=== PATIENT | male | born 1955 | race Caucasian/White ===

== ENCOUNTER 2018-01-15 18:16 | Emergency (ER) | payer SELFPAY ==
[~2018-01-15] VITALS: Ht 170.2 cm; Wt 181.4 kg
[~2018-01-15 18:16] MED LIST: CIPRO500 MG PO; LASIX20 MG PO; LEXAPRO20 MG PO; LISINOPRIL10 MG PO; METOPROLOL TART25 MG PO; MIRAPEX1 MG PO; SOMA350 MG PO; TIZANIDINE HCL4 MG PO
[2018-01-15] MEDS ORDERED: HYDROCODONE/APAP 5MG-325MG TAB PO ONE (18:45)
[2018-01-15 19:17] LABS: BASOPHILS % 0.7 % (0.0-1.0); EOSINOPHILS # (AUTO) 0.3 (0.0-0.4); EOSINOPHILS % 5.1 % (0.0-6.0); HEMATOCRIT 36.2 % (38.2-49.6); HEMOGLOBIN 12.2 g/dL (14.0-18.0); LYMPHOCYTES # (AUTO) 1.5 (1.0-3.2); LYMPHOCYTES % 26.2 % (18.0-39.1); MEAN CORPUSCULAR HGB CONC 33.7 g/dL (31-35); MEAN CORPUSCULAR VOLUME 106.8 fL (81-99); MONOCYTES # (AUTO) 0.9 (0.2-0.8); MONOCYTES % 14.9 % (4.4-11.3); NEUTROPHILS # (AUTO) 3.1 (2.1-6.9); NEUTROPHILS % 52.4 % (38.7-80.0); RED BLOOD COUNT 3.39 x10e6/uL (4.3-5.7); RED CELL DISTRIBUTION WIDTH 14.7 % (11.7-14.4)
[2018-01-15 19:19] LABS: PLATELET COUNT 79 x10e3/uL (140-360)
[2018-01-15 19:42] LABS: ANION GAP 11.5 mmol/L (8-16); BLOOD UREA NITROGEN 12 mg/dL (7-26); BUN/CREATININE RATIO 11 (6-25); CALCIUM 8.9 mg/dL (8.4-10.2); CARBON DIOXIDE 33 mmol/L (22-29); CHLORIDE 100 mmol/L (98-107); CREATININE, SERUM 1.08 mg/dL (0.72-1.25); EST GLOMERULAR FILTRATION RATE > 60 ML/MIN (60-); GLUCOSE 116 mg/dL (74-118); POTASSIUM 4.5 mmol/L (3.5-5.1); SODIUM 140 mmol/L (136-145)
[2018-01-15 20:18] LABS: ERYTHROCYTE SEDIMENTATION RATE 16 mm/hr (0-13)
--- NOTE | 2018-01-15 20:22 | Diagnostic Imaging Report ---
HIP LEFT 2-3 VW (+/- PELVIS) - 3 views HISTORY: Pain. Fall. COMPARISON: None available. FINDINGS: Bones: No acute displaced fracture. Osseous alignment is within normal limits. Joints: The joint spaces are well-maintained. Soft tissues: The soft tissues appear unremarkable. IMPRESSION: No acute radiographic abnormality. Signed by: Dr. Andrew Chua M.D. on 01/15/2018 8:18 PM
--- NOTE | 2018-01-15 20:23 | Diagnostic Imaging Report ---
KNEE LEFT THREE VIEWS - 3 views HISTORY: Pain. Fall. COMPARISON: None available. FINDINGS: Bones: No acute displaced fracture. Osseous alignment is within normal limits. Joints: Moderate tricompartmental degenerative changes. Significant calcification of the quadriceps tendon, likely from previous quadriceps tendon injury and subsequent fracture and healing with heterotopic bone formation. Soft tissues: The soft tissues appear unremarkable. IMPRESSION: Moderate tricompartmental degenerative changes. Significant calcification of the quadriceps tendon, likely from previous quadriceps tendon injury and subsequent fracture and healing with heterotopic bone formation. Signed by: Dr. Andrew Chua M.D. on 01/15/2018 8:20 PM
[2018-01-15 21:12] VITALS: BP 117/77
== END 2018-01-15 22:06 | disposition home or self-care (01) ==
LOC: ER 18:16
DX: S80.02XA Contusion of left knee, initial encounter (principal); S80.212A Abrasion, left knee, initial encounter; M25.552 Pain in left hip; W06.XXXA Fall from bed, initial encounter; Y93.84 Activity, sleeping; Y92.003 Bedroom of unspecified non-institutional (private) residence as the place of occurrence of the external cause; I73.9 Peripheral vascular disease, unspecified; K74.60 Unspecified cirrhosis of liver; K21.9 Gastro-esophageal reflux disease without esophagitis
CPT/HCPCS: 36415; 80048; 85025; 85651; 93005; 99284

== ENCOUNTER 2018-04-02 00:16 | Inpatient (IN) | payer BC, MEDICARE ==
[~2018-04-02] VITALS: Ht 170.2 cm; Wt 197.6 kg
--- OUTSIDE RECORDS SUMMARY | 2018-04-02 00:20 | XMS REPORT | Continuity of Care Document ---
Author Author [facility] Interface Address Unknown Phone Unavailable Problems Problem Status Onset Date Classification Date Reported Comments Source DIARRHEA Active 08/20/2016 [facility] ACUTE HEPATIC ENCEPHALOPATHY Active 08/20/2016 [facility] CHF (<span [id number]</span>) Resolved Problem 09/03/2016 [facility] ACUTE AND SUBACUTE HEPATIC FAILURE WITHO Active [facility] Medications Medication Details Route Status Patient Instructions Ordering Provider Order Date Source Protonix 40 mg, 1 tab, Route: PO, Drug form: ECTAB, Before Lunch, Dosing Weight 186.989, kg, Start date: 08/30/16 11:30:00 CDT, Duration: 30 day, Stop date: 09/28/16 11:30:00 CDTNotes: Tablet should not be chewed or crushed. (Same as: Protonix) No Longer Active 08/30/2016 [facility] pantoprazole 40 MG Enteric Coated Tablet [Protonix] 40 mg=1 tab, PO, Daily, # 30 tab, 0 Refill(s) Active 08/30/2016 [facility] thiamine 100 mg oral tablet 100 mg=1 tab, PO, Daily, # 100 tab, 0 Refill(s) No Longer Active 08/30/2016 [facility] spironolactone 50 mg oral tablet 100 mg=2 tab, PO, Daily, # 60 tab, 0 Refill(s) Active 08/30/2016 [facility] riFAXimin 550 mg oral tablet 550 mg=1 tab, NG, BID, # 30 tab, 0 Refill(s) Active 08/30/2016 [facility] Lactulose 667 MG/ML Oral Solution 40 gm=60 mL, PO, TID, titrate to have at least 2 loose BM per day., # 3,600 mL, 1 Refill(s) No Longer Active 08/30/2016 [facility] Furosemide 40 MG Oral Tablet [Lasix] 40 mg=1 tab, PO, BID, # 60 tab, 0 Refill(s) Active 08/30/2016 [facility] Thiamine 100 mg, 1 tab, Route: PO, Drug form: TAB, Daily, Dosing Weight 186.989, kg, Start date: 08/29/16 9:00:00 CDT, Duration: 30 day, Stop date: 09/27/16 9:00:00 CDTNotes: (Same As: Vitamin B1) No Longer Active 08/29/2016 [facility] Spironolactone 100 mg, 2 tab, Route: PO, Drug form: TAB, Daily, Dosing Weight 186.989, kg, Start date: 08/28/16 9:00:00 CDT, Duration: 30 day, Stop date: 09/26/16 9:00:00 CDTNotes: (Same As: Aldactone) No Longer Active 08/28/2016 [facility] Albuterol 0.83 MG/ML Inhalant Solution 2.5 mg, 3.01 mL, Route: INHALATION, Drug form: SOLN, PRN, Dosing Weight 186.989, kg, PRN Shortness of breath, Start date: 08/25/16 22:53:00 CDT, Duration: 30 day, Stop date: 09/24/16 22:52:00 CDTNotes: SEE RT DOCUMENTATION (Same as: Proventil) No Longer Active 08/26/2016 [facility] Mirapex 0.25 mg, 0.5 tab, Route: PO, Drug form: TAB, Bedtime, Dosing Weight 186.989, kg, Start date: 08/25/16 21:00:00 CDT, Duration: 30 day, Stop date: 09/23/16 21:00:00 CDT No Longer Active 08/26/2016 [facility] Spironolactone 25 mg, 1 tab, Route: PO, Drug form: TAB, BID, Dosing Weight 186.989, kg, Start date: 08/24/16 17:00:00 CDT, Duration: 30 day, Stop date: 09/23/16 9:00:00 CDTNotes: (Same As: Aldactone) No Longer Active 08/24/2016 [facility] Furosemide 40 MG Oral Tablet [Lasix] 40 mg, 1 tab, Route: PO, Drug form: TAB, BID, Dosing Weight 186.989, kg, Start date: 08/24/16 17:00:00 CDT, Duration: 30 day, Stop date: 09/23/16 9:00:00 CDTNotes: (Same as: Lasix) May cause GI upset. Give with food or milk. No Longer Active 08/24/2016 [facility] Haldol 5 mg, 1 mL, Route: IVP, Drug form: INJ, Q6H, Dosing Weight 186.989, kg, PRN as needed for agitation, Start date: 08/23/16 17:40:00 CDT, Duration: 30 day, Stop date: 09/22/16 17:39:00 CDTNotes: (Same as: Haldol) No Longer Active 08/23/2016 [facility] XIFAXAN 550 mg, 1 tab, Route: NG, Drug form: TAB, BID, Dosing Weight 186.989, kg, Start date: 08/23/16 17:00:00 CDT, Duration: 30 day, Stop date: 09/22/16 9:00:00 CDTNotes: Same as: Xifaxan No Longer Active 08/23/2016 [facility] Lactulose 667 MG/ML Oral Solution 40 gm, 60 mL, Route: PO, Drug form: SYRP, TID, Dosing Weight 190.909, kg, Start date: 08/23/16 17:00:00 CDT, Stop date: 09/22/16 13:00:00 CDTNotes: (Same as:Chronulac) No Longer Active 08/23/2016 [facility] D5W 1/2NS + KCL 20mEq/L 1000ml (Premix) 1,000 mL 1,000 mL, Rate: 125 ml/hr, Infuse over: 8 hr, Route: IV, Dosing Weight 186.989 kg, Total Volume: 1,000, Start date: 08/23/16 11:54:00 CDT, Stop date: 09/22/16 11:53:00 CDTNotes: PREMIX IV - Do Not Alter WASTE: F/P - Sink; E - Municipal Trash Bin No Longer Active 08/23/2016 [facility] Geodon 10 mg, Route: IM, Drug form: PDR/INJ, Q12H, Dosing Weight 186.989, kg, PRN Agitation, Start date: 08/22/16 2:30:00 CDT, Duration: 30 day, Stop date: 09/21/16 2:29:00 CDTNotes: Reconstitute with 1.2 ml of sterile water. Final concentration=20 mg/1ml. Maximum 40 mg/24 hours (Same As: Geodon). MEDICATION WASTE Product Size: 20 mg Product Wasted: 10mg No Longer Active 08/22/2016 [facility] metoprolol tartrate 25 mg, 1 tab, Route: PO, Drug form: TAB, BID, Dosing Weight 186.989, kg, Start date: 08/21/16 21:00:00 CDT, Duration: 30 day, Stop date: 09/20/16 9:00:00 CDTNotes: (Same as: Lopressor) No Longer Active 08/22/2016 [facility] Lactulose 667 MG/ML Oral Solution 30 gm, 45 mL, Route: PO, Drug form: SYRP, Q6H, Dosing Weight 190.909, kg, Start date: 08/21/16 18:00:00 CDT, Duration: 30 day, Stop date: 09/20/16 12:00:00 CDTNotes: (Same as:Chronulac) No Longer Active 08/21/2016 [facility] Geodon 10 mg, Route: IV, Drug form: PDR/INJ, Q12H, Dosing Weight 186.989, kg, PRN Agitation, Start date: 08/21/16 14:19:00 CDT, Duration: 30 day, Stop date: 09/20/16 14:18:00 CDTNotes: MEDICATION WASTE Product Size: 20 mg Product Wasted: _10__ mg No Longer Active 08/21/2016 [facility] Lisinopril 10 mg, 2 tab, Route: PO, Drug form: TAB, Daily, Dosing Weight 186.989, kg, Start date: 08/21/16 12:00:00 CDT, Duration: 30 day, Stop date: 09/20/16 9:00:00 CDTNotes: (Same as: Prinivil, Zestril) No Longer Active 08/21/2016 [facility] Thiamine 100 mg, 1 mL, Route: IV, Drug form: INJ, Daily, Dosing Weight 186.989, kg, Start date: 08/21/16 11:10:00 CDT, Stop date: 09/19/16 11:30:00 CDTNotes: (Same As: Vitamin B1) No Longer Active 08/21/2016 [facility] Protonix 40 mg, Route: IV, Drug form: INJ, Q24H, Dosing Weight 186.989, kg, Start date: 08/21/16 11:00:00 CDT, Duration: 30 day, Stop date: 09/19/16 11:00:00 CDTNotes: For IV push reconstitute with 10 ml 0.9% so dium chloride and push over 2 minutes. (Same as: Protonix) No Longer Active 08/21/2016 [facility] D5W 1/2NS + KCL 20mEq/L 1000ml (Premix) 1,000 mL 1,000 mL, Rate: 75 ml/hr, Infuse over: 13.3 hr, Route: IV, Dosing Weight 186.989 kg, Total Volume: 1,000, Start date: 08/21/16 10:54:00 CDT, Duration: 30 day, Stop date: 09/20/16 10:53:00 CDTNotes: PREMIX IV - Do Not Alter WASTE: F/P - Sink; E - Municipal Trash Bin No Longer Active 08/21/2016 [facility] Magnesium Sulfate 2 gm, 50 mL, Route: IVPB, Drug form: INJ, ONCE, Dosing Weight 186.989, kg, Total dose=2 gm, Start date: 08/21/16 10:53:00 CDT, Duration: 1 doses or times, Stop date: 08/21/16 10:53:00 CDTNotes: WASTE: F/P - Sink; E - Municipal Trash Bin Inactive 08/21/2016 [facility] Lactulose 667 MG/ML Oral Solution 20 gm, 30 ml, Route: PO, Drug form: SYRP, Q8H, Dosing Weight 190.909, kg, Start date: 08/21/16 8:00:00 CDT, Duration: 30 day, Stop date: 09/20/16 0:00:00 CDTNotes: (Same as:Chronulac) Inactive 08/21/2016 [facility] Zosyn 3.375 gm, Route: IVPB, ABXQ8H, Dosing Weight 190.909, kg, CrCl >=20 ml/min infuse over 4 hours, Start date: 08/21/16 1:00:00 CDT, Duration: 30 day, Stop date: 09/19/16 17:00:00 CDTNotes: (Same as: Zosyn) Dosing based on Piperacillin component MEDICATION WASTE Product Size: 3375 mg Product Wasted: ___ mg No Longer Active 08/21/2016 [facility] Furosemide 40 MG Oral Tablet [Lasix] 40 mg=1 tab, PO, BID, 0 Refill(s) No Longer Active 08/21/2016 [facility] tizanidine 4 mg oral tablet 4 mg=1 tab, PO, Bedtime, PRN for muscle spasm, # 30 tab, 0 Refill(s) Active 08/21/2016 [facility] lisinopril 10 mg oral tablet 10 mg=1 tab, PO, Daily, # 30 tab, 0 Refill(s) Active 08/21/2016 [facility] metoprolol tartrate 25 mg oral tablet 25 mg=1 tab, PO, BID, # 180 tab, 0 Refill(s) Active 08/21/2016 [facility] Acetaminophen 325 MG / Hydrocodone Bitartrate 10 MG Oral Tablet 1 tab, PO, Q8H, PRN Pain, # 30 tab, 0 Refill(s) No Longer Active 08/21/2016 [facility] Escitalopram 20 MG Oral Tablet [Lexapro] 20 mg=1 tab, PO, Bedtime, 0 Refill(s) Active 08/21/2016 [facility] Pramipexole dihydrochloride 0.25 MG Oral Tablet [Mirapex] 0.25 mg=1 tab, PO, Bedtime, # 60 tab, 3 Refill(s) Active 08/21/2016 [facility] Saline Flush 0.9% 10 ml, Route: IVP, Drug Form: INJ, Dosing Weight 190.909, kg, PRN, PRN Line Flush, Start date: 08/21/16 0:18:00 CDT, Duration: 30 day, Stop date: 09/20/16 0:17:00 CDTNotes: (Same as: BD Posiflush) No Longer Active 08/21/2016 [facility] Sodium Chloride 0.154 MEQ/ML Injectable Solution 1,000 mL, Rate: 125 ml/hr, Infuse over: 8 hr, Route: IV, Dosing Weight 190.909 kg, Total Volume: 1,000, Start date: 08/21/16 0:18:00 CDT, Duration: 30 day, Stop date: 09/20/16 0:17:00 CDT Inactive 08/21/2016 [facility] Ondansetron 4 mg, 2 mL, Route: IVP, Drug form: INJ, Q6H, Dosing Weight 190.909, kg, PRN Nausea & Vomiting, Start date: 08/21/16 0:18:00 CDT, Duration: 30 day, Stop date: 09/20/16 0:17:00 CDTNotes: (Same as: Zoalbert) MEDICATION WASTE Product Size: 4 mg Product Wasted: ___ mg No Longer Active 08/21/2016 [facility] Morphine 2 mg, 1 mL, Route: IVP, Drug form: INJ, Q4H, Dosing Weight 190.909, kg, PRN Pain Score 7-10, Start date: 08/21/16 0:18:00 CDT, Duration: 30 day, Stop date: 09/20/16 0:17:00 CDTNotes: (Same as:MORPhine Sulfate) No Longer Active 08/21/2016 [facility] Hydralazine 10 mg, 0.5 mL, Route: IVP, Drug form: INJ, Q6H, Dosing Weight 190.909, kg, PRN Elevated BP, Start date: 08/21/16 0:03:00 CDT, Duration: 30 day, Stop date: 09/20/16 0:02:00 CDT, for SBP > 160 mmNotes: (Same as: Apresoline) Push over 5 minutes No Longer Active 08/21/2016 [facility] Tessalon Perles 100 mg, 1 cap, Route: PO, Drug form: CAP, TID, Dosing Weight 190.909, kg, PRN Cough, Start date: 08/21/16 0:03:00 CDT, Duration: 30 day, Stop date: 09/20/16 0:02:00 CDTNotes: (Same As: Tessalon Perle s) "Do Not Crush" No Longer Active 08/21/2016 [facility] senna 8.6 mg oral tablet 8.6 mg, 1 tab, Route: PO, Drug Form: TAB, Dosing Weight 190.909, kg, BID, PRN Constipation, Start date: 08/21/16 0:03:00 CDT, Duration: 30 day, Stop date: 09/20/16 0:02:00 CDTNotes: (Same as: Senokot) Inactive 08/21/2016 [facility] Zofran 4 mg, 2 mL, Route: IVP, Drug form: INJ, Q8H, Dosing Weight 190.909, kg, PRN Nausea, Start date: 08/21/16 0:03:00 CDT, Duration: 30 day, Stop date: 09/20/16 0:02:00 CDTNotes: (Same as: Zofran) MEDICATION WASTE Product Size: 4 mg Product Wasted: ___ mg Inactive 08/21/2016 [facility] Ceftriaxone 1 gm, Route: IVPB, ONCE, Dosing Weight 190.909, kg, Priority: STAT, Start date: 08/20/16 20:31:00 CDT, Stop date: 08/20/16 20:31:00 CDTNotes: (Same As: Rocephin). Use with 100 mL NS and infuse over 30 min MEDICATION WASTE Product Size: 1000 mg Product Wasted: ___ mg Inactive 08/21/2016 [facility] Lactulose 667 MG/ML Oral Solution 30 gm, 45 ml, Route: PO, Drug form: SYRP, ONCE, Dosing Weight 190.909, kg, Priority: STAT, Start date: 08/20/16 20:28:00 CDT, Stop date: 08/20/16 20:28:00 CDTNotes: (Same as:Chronulac) Inactive 08/21/2016 [facility] Ativan 1 mg, Route: IVP, Drug form: INJ, ONCE, Dosing Weight 204.545, kg, Priority: STAT, Start date: 08/20/16 19:12:00 CDT, Stop date: 08/20/16 19:12:00 CDT Inactive 08/21/2016 [facility] Sodium Chloride 0.154 MEQ/ML Injectable Solution 1,000 mL, 1000 ml/hr, Infuse Over: 1 hr, Route: IV, 1,000, Drug form: INJ, ONCE, Priority: STAT, Dosing Weight 204.545 kg, Start date: 08/20/16 18:52:00 CDT, Duration: 1 doses or times, Stop date: 08/20/16 18:52:00 CDT Inactive 08/20/2016 [facility] Naloxone 0.4 mg, 1 mL, Route: IVP, Drug form: INJ, ONCE, Dosing Weight 204.545, kg, Priority: STAT, Start date: 08/20/16 18:52:00 CDT, Stop date: 08/20/16 18:52:00 CDTNotes: Same as Narcan Inactive 08/20/2016 [facility] Allergies, Adverse Reactions, Alerts Substance Category Reaction Severity Reaction type Status Date Reported Comments Source Immunizations Immunization Date Given Site Status Last Updated Comments Source Results Order Name Results Value Reference Range Date Interpretation Comments Source CHEM PANEL Ammonia 89.0 umol/L <=45.0 uMol/L 08/31/2016 [facility] CHEM PANEL Ammonia 138.0 umol/L <=45.0 uMol/L 08/30/2016 [facility] CHEM PANEL Ammonia 161.0 umol/L <=45.0 uMol/L 08/29/2016 [facility] CHEM PANEL Bili Total 3.9 mg/dL 0.2 - 1.3 08/25/2016 [facility] CHEM PANEL Sodium Lvl 145 meq/L 135 - 145 08/25/2016 [facility] CHEM PANEL Creatinine Lvl 0.85 mg/dL 0.50 - 1.40 08/25/2016 [facility] CHEM PANEL CO2 20 meq/L 24 - 32 08/25/2016 [facility] CHEM PANEL Chloride Lvl 113 meq/L 95 - 109 08/25/2016 [facility] CHEM PANEL Potassium Lvl 4.1 meq/L 3.5 - 5.1 08/25/2016 [facility] CHEM PANEL eGFR 94 mL/min/1.73m2 08/25/2016 Result Comment: The eGFR is calculated using the CKD-EPI formula. In most young, healthy individuals the eGFR will be >90 mL/min/1.73m2. The eGFR declines with age. An eGFR of 60-89 may be normal in some populations, particularly the elderly, for whom the CKD-EPI formula has not been extensively validated. Use of the eGFR is not recommended in the following populations: Individuals with unstable creatinine concentrations, including patients and those with serious co-morbid conditions. Patients with extremes in muscle mass or diet. The data above are obtained from the National Kidney Disease Education Program (NKDEP) which additionally recommends that when the eGFR is used in patients with extremes of body mass index for purposes of drug dosing, the eGFR should be multiplied by the estimated BMI. [facility] CHEM PANEL BUN 6 mg/dL 7 - 22 08/25/2016 [facility] CHEM PANEL Glucose Lvl 107 mg/dL 70 - 99 08/25/2016 [facility] CHEM PANEL AST 78 unit/L 0 - 37 08/25/2016 [facility] CHEM PANEL ALT 37 unit/L 0 - 65 08/25/2016 [facility] CHEM PANEL Albumin Lvl 2.4 g/dL 3.5 - 5.0 08/25/2016 [facility] CHEM PANEL Total Protein 6.0 g/dL 6.4 - 8.4 08/25/2016 [facility] CHEM PANEL Calcium Lvl 7.8 mg/dL 8.5 - 10.5 08/25/2016 [facility] CHEM PANEL Alk Phos 88 unit/L 39 - 136 08/25/2016 [facility] CHEM PANEL A/G Ratio 0.7 0.7 - 1.6 08/25/2016 [facility] CHEM PANEL Globulin 3.6 g/dL 2.7 - 4.2 08/25/2016 [facility] CHEM PANEL B/C Ratio 7 6 - 25 08/25/2016 [facility] CHEM PANEL AGAP 16.1 meq/L 10.0 - 20.0 08/25/2016 [facility] HEMATOLOGY RBC 3.75 M/CMM 4.70 - 6.10 08/25/2016 [facility] HEMATOLOGY WBC 8.6 K/CMM 3.7 - 10.4 08/25/2016 [facility] HEMATOLOGY Hct 37.8 % 42.0 - 54.0 08/25/2016 [facility] Hgb 13.5 g/dL 14.0 - 18.0 08/25/2016 [facility] MCHC 35.7 g/dL 32.0 - 36.0 08/25/2016 [facility] MCH 36.1 pg 27.0 - 31.0 08/25/2016 [facility] MCV 100.9 fL 80.0 - 94.0 08/25/2016 [facility] Platelet 99 K/CMM 133 - 450 08/25/2016 [facility] RDW 15.4 % 11.5 - 14.5 08/25/2016 [facility] MPV 9.1 fL 7.4 - 10.4 08/25/2016 [facility] Macrocyte 1+ *ABN* (08/25/16 3:33 AM) None Seen 08/25/2016 [facility] Monocytes # 1.2 K/CMM 0.0 - 0.8 08/25/2016 [facility] Eosinophils # 0.5 K/CMM 0.0 - 0.5 08/25/2016 [facility] Lymphocytes # 1.7 K/CMM 1.0 - 5.5 08/25/2016 [facility] Segs 59.2 % 45.0 - 75.0 08/25/2016 [facility] Eosinophils 6.2 % 0.0 - 4.0 08/25/2016 [facility] Monocytes 14.3 % 2.0 - 12.0 08/25/2016 [facility] Lymphocytes 19.8 % 20.0 - 40.0 08/25/2016 [facility] Segs-Bands # 5.1 K/CMM 1.5 - 8.1 08/25/2016 [facility] Basophils 0.5 % 0.0 - 1.0 08/25/2016 [facility] Abdomen w IV contrast CT Abdomen w IV contrast CT Patient Name: JERMAINE POMPA : 1955; Age: 60 years Male MR: [id number] Study: Abdomen w IV contrast CT 08/23/2016 1:07 PM CDT CLINICAL INDICATION: Abdominal fullness/Acute and Subacute hepatic may 08/21/16 - [address] dose DLP 2771.84 mGy-cm COMPARISON: CT on 12/30/2003 TECHNIQUE: Multidetector CT imaging of the abdomen was performed from the diaphragm through the iliac wings WITH IV contrast. Coronal and sagittal reconstructions were generated and reviewed. FINDINGS: Lower thorax: Mild cardiomegaly and valvular calcifications. Hepatobiliary: Nodular liver contour with relative hypertrophy of the left lobe. No suspicious hepatic lesion. Unremarkable gallbladder. Pancreas: No focal mass or ductal dilatation. Spleen: Enlarged liver, measuring 15 cm in longitudinal dimension. Adrenals: No nodules. Kidneys: No hydronephrosis or renal stones. Peritoneum/Retroperitoneum: Trace ascites around the right liver. No free air. Lymph nodes: No lymphadenopathy. Vessels: Extensive gastroesophageal and splenorenal varices. GI: No significant bowel thickening or dilatation of the visualized bowel. The appendix appears unremarkable. Bones and soft tissues: Mild degenerative changes of the spine. IMPRESSION: Cirrhosis. Extensive gastroesophageal/splenorenal varices, splenomegaly, and trace ascites. SL: [id number] 08/24/2016 - - Read by: Jv Lewis MD Dictated Date/time: 08/24/16 17:03 Electronically Signed by: Jv Lewis MD 08/24/16 17:12 FINAL REPORT [facility] CHEM PANEL eGFR 88 mL/min/1.73m2 08/24/2016 Result Comment: The eGFR is calculated using the CKD-EPI formula. In most young, healthy individuals the eGFR will be >90 mL/min/1.73m2. The eGFR declines with age. An eGFR of 60-89 may be normal in some populations, particularly the elderly, for whom the CKD-EPI formula has not been extensively validated. Use of the eGFR is not recommended in the following populations: Individuals with unstable creatinine concentrations, including patients and those with serious co-morbid conditions. Patients with extremes in muscle mass or diet. The data above are obtained from the National Kidney Disease Education Program (NKDEP) which additionally recommends that when the eGFR is used in patients with extremes of body mass index for purposes of drug dosing, the eGFR should be multiplied by the estimated BMI. [facility] CHEM PANEL Alk Phos 80 unit/L 39 - 136 08/24/2016 [facility] CHEM PANEL Bili Total 4.7 mg/dL 0.2 - 1.3 08/24/2016 [facility] CHEM PANEL AST 56 unit/L 0 - 37 08/24/2016 [facility] CHEM PANEL Albumin Lvl 2.5 g/dL 3.5 - 5.0 08/24/2016 [facility] CHEM PANEL ALT 33 unit/L 0 - 65 08/24/2016 [facility] CHEM PANEL Potassium Lvl 3.5 meq/L 3.5 - 5.1 08/24/2016 [facility] CHEM PANEL Sodium Lvl 151 meq/L 135 - 145 08/24/2016 [facility] CHEM PANEL Calcium Lvl 7.9 mg/dL 8.5 - 10.5 08/24/2016 [facility] CHEM PANEL Total Protein 6.1 g/dL 6.4 - 8.4 08/24/2016 [facility] CHEM PANEL Chloride Lvl 121 meq/L 95 - 109 08/24/2016 [facility] CHEM PANEL CO2 25 meq/L 24 - 32 08/24/2016 [facility] CHEM PANEL BUN 11 mg/dL 7 - 22 08/24/2016 [facility] CHEM PANEL Creatinine Lvl 0.93 mg/dL 0.50 - 1.40 08/24/2016 [facility] CHEM PANEL Glucose Lvl 123 mg/dL 70 - 99 08/24/2016 [facility] CHEM PANEL B/C Ratio 12 6 - 25 08/24/2016 [facility] CHEM PANEL Globulin 3.6 g/dL 2.7 - 4.2 08/24/2016 [facility] CHEM PANEL AGAP 8.5 meq/L 10.0 - 20.0 08/24/2016 [facility] CHEM PANEL A/G Ratio 0.7 0.7 - 1.6 08/24/2016 [facility] HEMATOLOGY MPV 8.6 fL 7.4 - 10.4 08/24/2016 [facility] MCHC 35.4 g/dL 32.0 - 36.0 08/24/2016 [facility] RDW 15.4 % 11.5 - 14.5 08/24/2016 [facility] Platelet 96 K/CMM 133 - 450 08/24/2016 [facility] MCH 35.5 pg 27.0 - 31.0 08/24/2016 [facility] MCV 100.1 fL 80.0 - 94.0 08/24/2016 [facility] WBC 7.9 K/CMM 3.7 - 10.4 08/24/2016 [facility] Hgb 13.2 g/dL 14.0 - 18.0 08/24/2016 [facility] Hct 37.2 % 42.0 - 54.0 08/24/2016 [facility] RBC 3.71 M/CMM 4.70 - 6.10 08/24/2016 [facility] HEMATOLOGY Metamyelocytes 1.0 % 0.0 - 1.0 08/24/2016 [facility] Monocytes 11.0 % 2.0 - 12.0 08/24/2016 [facility] Lymphocytes 17.0 % 20.0 - 40.0 08/24/2016 [facility] Atypical Lymphs 0.0 % <=0.0 % 08/24/2016 [facility] Eosinophils 8.0 % 0.0 - 4.0 08/24/2016 [facility] HEMATOLOGY Plt Morph Normal (08/24/16 5:24 AM) 08/24/2016 [facility] HEMATOLOGY Bands 6.0 % 0.0 - 11.0 08/24/2016 [facility] HEMATOLOGY Segs 56.0 % 45.0 - 75.0 08/24/2016 [facility] HEMATOLOGY Eosinophils # 0.6 K/CMM 0.0 - 0.5 08/24/2016 [facility] HEMATOLOGY Monocytes # 0.9 K/CMM 0.0 - 0.8 08/24/2016 [facility] HEMATOLOGY Lymphocytes # 1.3 K/CMM 1.0 - 5.5 08/24/2016 [facility] Segs-Bands # 4.9 K/CMM 1.5 - 8.1 08/24/2016 [facility] Basophils # 0.1 K/CMM 0.0 - 0.2 08/24/2016 [facility] Basophils 1.0 % 0.0 - 1.0 08/24/2016 [facility] Macrocyte 1+ *ABN* (08/24/16 5:24 AM) None Seen 08/24/2016 [facility] Tot Cell Ct 100 08/24/2016 [facility] TUMOR MARKERS AFP 5.7 ng/mL 0.0 - 11.0 08/24/2016 [facility] Abdomen 1 v for Placement DX Abdomen 1 v for Placement DX EXAM: Abdomen 1 v for Placement DX DATE: 08/23/2016 9:07 PM CDT INDICATION: Line Placement - Chest 1 view for line placement COMPARISON: None. IMPRESSION: Possibly NG tube is coiled within the distal esophagus. Readjustment and repeat imaging recommended. SL: [id number] 08/23/2016 - - Read by: Adrien Cast MD Dictated Date/time: 08/23/16 22:01 Electronically Signed by: Adrien Cast MD 08/23/16 22:04 FINAL REPORT [facility] CHEM PANEL Magnesium Lvl 2.2 mg/dL 1.8 - 2.4 08/23/2016 [facility] CHEM PANEL Phosphorus 1.8 mg/dL 2.5 - 4.5 08/23/2016 [facility] CHEM PANEL eGFR 83 mL/min/1.73m2 08/23/2016 Result Comment: The eGFR is calculated using the CKD-EPI formula. In most young, healthy individuals the eGFR will be >90 mL/min/1.73m2. The eGFR declines with age. An eGFR of 60-89 may be normal in some populations, particularly the elderly, for whom the CKD-EPI formula has not been extensively validated. Use of the eGFR is not recommended in the following populations: Individuals with unstable creatinine concentrations, including patients and those with serious co-morbid conditions. Patients with extremes in muscle mass or diet. The data above are obtained from the National Kidney Disease Education Program (NKDEP) which additionally recommends that when the eGFR is used in patients with extremes of body mass index for purposes of drug dosing, the eGFR should be multiplied by the estimated BMI. [facility] CHEM PANEL Bili Total 4.3 mg/dL 0.2 - 1.3 08/23/2016 [facility] CHEM PANEL Albumin Lvl 2.5 g/dL 3.5 - 5.0 08/23/2016 [facility] CHEM PANEL ALT 28 unit/L 0 - 65 08/23/2016 [facility] CHEM PANEL AST 62 unit/L 0 - 37 08/23/2016 [facility] CHEM PANEL Alk Phos 78 unit/L 39 - 136 08/23/2016 [facility] CHEM PANEL CO2 20 meq/L 24 - 32 08/23/2016 [facility] CHEM PANEL Calcium Lvl 8.0 mg/dL 8.5 - 10.5 08/23/2016 [facility] CHEM PANEL Total Protein 6.4 g/dL 6.4 - 8.4 08/23/2016 [facility] CHEM PANEL Chloride Lvl 121 meq/L 95 - 109 08/23/2016 [facility] CHEM PANEL Sodium Lvl 149 meq/L 135 - 145 08/23/2016 [facility] CHEM PANEL Potassium Lvl 3.5 meq/L 3.5 - 5.1 08/23/2016 [facility] CHEM PANEL Glucose Lvl 122 mg/dL 70 - 99 08/23/2016 [facility] CHEM PANEL BUN 12 mg/dL 7 - 22 08/23/2016 [facility] CHEM PANEL Creatinine Lvl 0.98 mg/dL 0.50 - 1.40 08/23/2016 [facility] CHEM PANEL AGAP 11.5 meq/L 10.0 - 20.0 08/23/2016 [facility] CHEM PANEL B/C Ratio 12 6 - 25 08/23/2016 [facility] CHEM PANEL Globulin 3.9 g/dL 2.7 - 4.2 08/23/2016 [facility] CHEM PANEL A/G Ratio 0.6 0.7 - 1.6 08/23/2016 [facility] HEMATOLOGY Lymphocytes # 1.6 K/CMM 1.0 - 5.5 08/23/2016 [facility] Segs-Bands # 4.4 K/CMM 1.5 - 8.1 08/23/2016 [facility] Macrocyte 1+ *ABN* (08/23/16 5:23 AM) None Seen 08/23/2016 [facility] Monocytes # 1.5 K/CMM 0.0 - 0.8 08/23/2016 [facility] Eosinophils # 0.5 K/CMM 0.0 - 0.5 08/23/2016 [facility] Segs 55.4 % 45.0 - 75.0 08/23/2016 [facility] Basophils 0.5 % 0.0 - 1.0 08/23/2016 [facility] Eosinophils 5.7 % 0.0 - 4.0 08/23/2016 [facility] Monocytes 18.7 % 2.0 - 12.0 08/23/2016 [facility] Lymphocytes 19.7 % 20.0 - 40.0 08/23/2016 [facility] MCH 35.4 pg 27.0 - 31.0 08/23/2016 [facility] MCHC 34.6 g/dL 32.0 - 36.0 08/23/2016 [facility] MPV 8.9 fL 7.4 - 10.4 08/23/2016 [facility] RDW 15.5 % 11.5 - 14.5 08/23/2016 [facility] Platelet 93 K/CMM 133 - 450 08/23/2016 [facility] RBC 4.00 M/CMM 4.70 - 6.10 08/23/2016 [facility] Hgb 14.2 g/dL 14.0 - 18.0 08/23/2016 [facility] WBC 7.9 K/CMM 3.7 - 10.4 08/23/2016 [facility] MCV 102.1 fL 80.0 - 94.0 08/23/2016 [facility] Hct 40.9 % 42.0 - 54.0 08/23/2016 [facility] ANEMIA STUDY Folate Lvl 23.6 ng/mL >=3.0 ng/mL 08/21/2016 [facility] ANEMIA STUDY Vitamin B12 Lvl 1073 pg/mL 254 - 1320 08/21/2016 [facility] IMMUNOLOGY Hep Bs Ag Negative *NA* (08/21/16 3:00 PM) Negative 08/21/2016 [facility] Hep B Core IgM Negative *NA*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
--- OUTSIDE RECORDS SUMMARY | 2018-04-02 00:20 | XMS REPORT | Summary of Care ---
Author Author [facility] Organization [facility] Address Unknown Phone Unavailable Encounter ATILIO Boudreaux(LUISA) [id number] Date(s): 08/20/16 - 08/31/16 [facility] [address] [place] [address]- Discharge Disposition: Home or Self Care Attending Physician: Jesus Murrieta MD Admitting Physician: Jesus Murrieta MD Vital Signs 1 2 3 Most recent to oldest [Reference Range]: 170.18 cm (08/21/16 12:20 AM) 170.18 cm (08/20/16 8:24 PM) 170.18 cm (08/20/16 6:42 PM) Height 190.199 kg (08/22/16 3:42 PM) Current Weight 98.5 DegF (08/31/16 11:30 AM) 97.5 DegF (08/31/16 8:34 AM) 98.0 DegF (08/31/16 12:00 AM) Temperature Oral [96.4-99.1 DegF] 113/71 mmHg (08/31/16 11:30 AM) 124/73 mmHg (08/31/16 8:34 AM) 121/78 mmHg (08/31/16 4:00 AM) Blood Pressure [90-140/60-90 mmHg] 20 BRMIN (08/31/16 11:30 AM) 14 BRMIN (08/31/16 9:03 AM) 20 BRMIN (08/31/16 8:34 AM) Respiratory Rate [14-20 BRMIN] 66 bpm (08/31/16 11:30 AM) 68 bpm (08/31/16 8:34 AM) 67 bpm (08/31/16 4:00 AM) Peripheral Pulse Rate [60-100 bpm] 186.989 kg (08/21/16 12:20 AM) 190.909 kg (08/20/16 8:24 PM) 204.545 kg (08/20/16 6:42 PM) Weight 64.57 m2 (08/21/16 12:20 AM) 65.92 m2 (08/20/16 8:24 PM) 70.63 m2 (08/20/16 6:42 PM) Body Mass Index Problem List Condition Effective Dates Status Health Status Informant CHF (congestive Resolved heart failure)(Confirmed) Allergies, Adverse Reactions, Alerts Substance Reaction Severity Status NKDA Active Medications acetaminophen-hydrocodone 325 mg-10 mg oral tablet 1 tab, PO, Q8H, PRN Pain, # 30 tab, 0 Refill(s) Start Date: 08/21/16 Stop Date: 08/30/16 Status: Discontinued albuterol 0.083% inhalation solution 2.5 mg, 3.01 mL, Route: INHALATION, Drug form: SOLN, PRN, Dosing Weight 186.989, kg, PRN Shortness of breath, Start date: 08/25/16 22:53:00 CDT, Duration: 30 da y, Stop date: 09/24/16 22:52:00 CDT Notes: SEE RT DOCUMENTATION (Same as: Logantil) Start Date: 08/25/16 Stop Date: 08/31/16 Status: Discontinued Ativan 1 mg, Route: IVP, Drug form: INJ, ONCE, Dosing Weight 204.545, kg, Priority: STA T, Start date: 08/20/16 19:12:00 CDT, Stop date: 08/20/16 19:12:00 CDT Start Date: 08/20/16 Stop Date: 08/20/16 Status: Completed cefTRIAXone + sodium chloride 0.9% INJ 100 mL 1 gm, Route: IVPB, ONCE, Dosing Weight 190.909, kg, Priority: STAT, Start date: 08/20/16 20:31:00 CDT, Stop date: 08/20/16 20:31:00 CDT Notes: (Same As: Rocephin).Use with 100 mL NS and infuse over 30 min MEDICA TION WASTE Product Size: 1000 mgProduct Wasted: ___ mg Start Date: 08/20/16 Stop Date: 08/20/16 Status: Completed D5W 1/2NS + KCL 20mEq/L 1000ml (Premix) 1,000 mL 1,000 mL, Rate: 125 ml/hr, Infuse over: 8 hr, Route: IV, Dosing Weight 186.989 k g, Total Volume: 1,000, Start date: 08/23/16 11:54:00 CDT, Stop date: 09/22/16 1 1:53:00 CDT Notes: PREMIX IV - Do Not AlterWASTE: F/P - Sink; E - Municipal Trash Bin Start Date: 08/23/16 Stop Date: 08/25/16 Status: Discontinued D5W 1/2NS + KCL 20mEq/L 1000ml (Premix) 1,000 mL 1,000 mL, Rate: 75 ml/hr, Infuse over: 13.3 hr, Route: IV, Dosing Weight 186.989 kg, Total Volume: 1,000, Start date: 08/21/16 10:54:00 CDT, Duration: 30 day, S top date: 09/20/16 10:53:00 CDT Notes: PREMIX IV - Do Not AlterWASTE: F/P - Sink; E - Municipal Trash Bin Start Date: 08/21/16 Stop Date: 08/23/16 Status: Discontinued Geodon 10 mg, Route: IV, Drug form: PDR/INJ, Q12H, Dosing Weight 186.989, kg, PRN Agita tion, Start date: 08/21/16 14:19:00 CDT, Duration: 30 day, Stop date: 09/20/16 1 4:18:00 CDT Notes: MEDICATION WASTE Product Size: 20 mgProduct Wasted: _10__ mg Start Date: 08/21/16 Stop Date: 08/22/16 Status: Discontinued Geodon 10 mg, Route: IM, Drug form: PDR/INJ, Q12H, Dosing Weight 186.989, kg, PRN Agita tion, Start date: 08/22/16 2:30:00 CDT, Duration: 30 day, Stop date: 09/21/16 2: 29:00 CDT Notes: Reconstitute with 1.2 ml of sterile water. Final concentration=20 mg/1ml . Maximum 40 mg/24 hours (Same As: Nely). MEDICATION WASTE Pr oduct Size: 20 mgProduct Wasted: 10mg Start Date: 08/22/16 Stop Date: 08/31/16 Status: Discontinued Haldol 5 mg, 1 mL, Route: IVP, Drug form: INJ, Q6H, Dosing Weight 186.989, kg, PRN as n eeded for agitation, Start date: 08/23/16 17:40:00 CDT, Duration: 30 day, Stop d ate: 09/22/16 17:39:00 CDT Notes: (Same as: Haldol) Start Date: 08/23/16 Stop Date: 08/31/16 Status: Discontinued hydrALAZINE 10 mg, 0.5 mL, Route: IVP, Drug form: INJ, Q6H, Dosing Weight 190.909, kg, PRN E levated BP, Start date: 08/21/16 0:03:00 CDT, Duration: 30 day, Stop date: 09/20 0:02:00 CDT, for SBP > 160 mm Notes: (Same as: Apresoline)Push over 5 minutes Start Date: 08/21/16 Stop Date: 08/31/16 Status: Discontinued lactulose 10 g/15 mL oral syrup 40 gm=60 mL, PO, TID, titrate to have at least 2 loose BM per day., # 3,600 mL, 1 Refill(s) Start Date: 08/30/16 Stop Date: 08/31/16 Status: Completed lactulose 10 g/15 mL oral syrup 30 gm, 45 mL, Route: PO, Drug form: SYRP, Q6H, Dosing Weight 190.909, kg, Start date: 08/21/16 18:00:00 CDT, Duration: 30 day, Stop date: 09/20/16 12:00:00 CDT Notes: (Same as:Chronulac) Start Date: 08/21/16 Stop Date: 08/23/16 Status: Discontinued lactulose 10 g/15 mL oral syrup 30 gm, 45 ml, Route: PO, Drug form: SYRP, ONCE, Dosing Weight 190.909, kg, Prior ity: STAT, Start date: 08/20/16 20:28:00 CDT, Stop date: 08/20/16 20:28:00 CDT Notes: (Same as:Chronulac) Start Date: 08/20/16 Stop Date: 08/20/16 Status: Completed lactulose 10 g/15 mL oral syrup 20 gm, 30 ml, Route: PO, Drug form: SYRP, Q8H, Dosing Weight 190.909, kg, Start date: 08/21/16 8:00:00 CDT, Duration: 30 day, Stop date: 09/20/16 0:00:00 CDT Notes: (Same as:Chronulac) Start Date: 08/21/16 Stop Date: 08/21/16 Status: Discontinued lactulose 10 g/15 mL oral syrup 40 gm, 60 mL, Route: PO, Drug form: SYRP, TID, Dosing Weight 190.909, kg, Start date: 08/23/16 17:00:00 CDT, Stop date: 09/22/16 13:00:00 CDT Notes: (Same as:Chronulac) Start Date: 08/23/16 Stop Date: 08/31/16 Status: Discontinued Lasix 40 mg oral tablet 40 mg=1 tab, PO, BID, 0 Refill(s) Start Date: 08/21/16 Stop Date: 08/30/16 Status: Discontinued Lasix 40 mg oral tablet 40 mg=1 tab, PO, BID, # 60 tab, 0 Refill(s) Start Date: 08/30/16 Status: Ordered Lasix 40 mg oral tablet 40 mg, 1 tab, Route: PO, Drug form: TAB, BID, Dosing Weight 186.989, kg, Start d ate: 08/24/16 17:00:00 CDT, Duration: 30 day, Stop date: 09/23/16 9:00:00 CDT Notes: (Same as: Lasix) May cause GI upset. Give with food or milk. Start Date: 08/24/16 Stop Date: 08/31/16 Status: Discontinued Lexapro 20 mg oral tablet 20 mg=1 tab, PO, Bedtime, 0 Refill(s) Start Date: 08/21/16 Status: Ordered lisinopril 10 mg, 2 tab, Route: PO, Drug form: TAB, Daily, Dosing Weight 186.989, kg, Start date: 08/21/16 12:00:00 CDT, Duration: 30 day, Stop date: 09/20/16 9:00:00 CDT Notes: (Same as: Diana Roberts) Start Date: 08/21/16 Stop Date: 08/31/16 Status: Discontinued lisinopril 10 mg oral tablet 10 mg=1 tab, PO, Daily, # 30 tab, 0 Refill(s) Start Date: 08/21/16 Status: Ordered magnesium sulfate 2 gm, 50 mL, Route: IVPB, Drug form: INJ, ONCE, Dosing Weight 186.989, kg, Total dose=2 gm, Start date: 08/21/16 10:53:00 CDT, Duration: 1 doses or times, Stop date: 08/21/16 10:53:00 CDT Notes: WASTE: F/P - Sink; E - Municipal Trash Bin Start Date: 08/21/16 Stop Date: 08/21/16 Status: Completed metoprolol tartrate 25 mg, 1 tab, Route: PO, Drug form: TAB, BID, Dosing Weight 186.989, kg, Start d ate: 08/21/16 21:00:00 CDT, Duration: 30 day, Stop date: 09/20/16 9:00:00 CDT Notes: (Same as: Annie) Start Date: 08/21/16 Stop Date: 08/31/16 Status: Discontinued metoprolol tartrate 25 mg oral tablet 25 mg=1 tab, PO, BID, # 180 tab, 0 Refill(s) Start Date: 08/21/16 Status: Ordered Mirapex 0.25 mg, 0.5 tab, Route: PO, Drug form: TAB, Bedtime, Dosing Weight 186.989, kg, Start date: 08/25/16 21:00:00 CDT, Duration: 30 day, Stop date: 09/23/16 21:00: 00 CDT Start Date: 08/25/16 Stop Date: 08/31/16 Status: Discontinued Mirapex 0.25 mg oral tablet 0.25 mg=1 tab, PO, Bedtime, # 60 tab, 3 Refill(s) Start Date: 08/21/16 Status: Ordered morphine Sulfate 2 mg, 1 mL, Route: IVP, Drug form: INJ, Q4H, Dosing Weight 190.909, kg, PRN Pain Score 7-10, Start date: 08/21/16 0:18:00 CDT, Duration: 30 day, Stop date: 07/04 0:17:00 CDT Notes: (Same as:MORPhine Sulfate) Start Date: 08/21/16 Stop Date: 08/29/16 Status: Discontinued Narcan 0.4 mg, 1 mL, Route: IVP, Drug form: INJ, ONCE, Dosing Weight 204.545, kg, Prior ity: STAT, Start date: 08/20/16 18:52:00 CDT, Stop date: 08/20/16 18:52:00 CDT Notes: Same as Narcan Start Date: 08/20/16 Stop Date: 08/20/16 Status: Completed ondansetron 4 mg, 2 mL, Route: IVP, Drug form: INJ, Q6H, Dosing Weight 190.909, kg, PRN Naus ea & Vomiting, Start date: 08/21/16 0:18:00 CDT, Duration: 30 day, Stop date: 09/20/16 0:17:00 CDT Notes: (Same as: Zofran) MEDICATION WASTE Product Size: 4 mgProduct Was alfredo: ___ mg Start Date: 08/21/16 Stop Date: 08/31/16 Status: Discontinued Protonix 40 mg, Route: IV, Drug form: INJ, Q24H, Dosing Weight 186.989, kg, Start date: 0 08/21/16 11:00:00 CDT, Duration: 30 day, Stop date: 09/19/16 11:00:00 CDT Notes: For IV push reconstitute with 10 ml 0.9% sodium chloride and push over 2 minutes. (Same as: Protonix) Start Date: 08/21/16 Stop Date: 08/30/16 Status: Discontinued Protonix 40 mg, 1 tab, Route: PO, Drug form: ECTAB, Before Lunch, Dosing Weight 186.989, kg, Start date: 08/30/16 11:30:00 CDT, Duration: 30 day, Stop date: 09/28/16 11: 30:00 CDT Notes: Tablet should not be chewed or crushed.(Same as: Protonix) Start Date: 08/30/16 Stop Date: 08/31/16 Status: Discontinued Protonix 40 mg oral enteric coated tablet 40 mg=1 tab, PO, Daily, # 30 tab, 0 Refill(s) Start Date: 08/30/16 Status: Ordered riFAXimin 550 mg oral tablet 550 mg=1 tab, NG, BID, # 30 tab, 0 Refill(s) Start Date: 08/30/16 Status: Ordered Saline Flush 0.9% 10 ml, Route: IVP, Drug Form: INJ, Dosing Weight 190.909, kg, PRN, PRN Line Flus h, Start date: 08/21/16 0:18:00 CDT, Duration: 30 day, Stop date: 09/20/16 0:17: 00 CDT Notes: (Same as: BD Posiflush) Start Date: 08/21/16 Stop Date: 08/31/16 Status: Discontinued senna 8.6 mg oral tablet 8.6 mg, 1 tab, Route: PO, Drug Form: TAB, Dosing Weight 190.909, kg, BID, PRN Co nstipation, Start date: 08/21/16 0:03:00 CDT, Duration: 30 day, Stop date: 09/20 0:02:00 CDT Notes: (Same as: Senokot) Start Date: 08/21/16 Stop Date: 08/21/16 Status: Discontinued Sodium Chloride 0.9% (Bolus) IV 1,000 mL, 1000 ml/hr, Infuse Over: 1 hr, Route: IV, 1,000, Drug form: INJ, ONCE, Priority: STAT, Dosing Weight 204.545 kg, Start date: 08/20/16 18:52:00 CDT, Du ration: 1 doses or times, Stop date: 08/20/16 18:52:00 CDT Start Date: 08/20/16 Stop Date: 08/20/16 Status: Completed sodium chloride 0.9% 1000 ml INJ 1,000 mL 1,000 mL, Rate: 125 ml/hr, Infuse over: 8 hr, Route: IV, Dosing Weight 190.909 k g, Total Volume: 1,000, Start date: 08/21/16 0:18:00 CDT, Duration: 30 day, Stop date: 09/20/16 0:17:00 CDT Start Date: 08/21/16 Stop Date: 08/21/16 Status: Discontinued sodium chloride 0.9% 1000 ml INJ 1,000 mL 1,000 mL, Rate: 75 ml/hr, Infuse over: 13.3 hr, Route: IV, Dosing Weight 204.545 kg, Total Volume: 1,000, Priority: STAT, Start date: 08/20/16 18:52:00 CDT, Dur ation: 1 doses or times, Stop date: 08/21/16 8:09:00 CDT Start Date: 08/20/16 Stop Date: 08/21/16 Status: Discontinued spironolactone 25 mg, 1 tab, Route: PO, Drug form: TAB, BID, Dosing Weight 186.989, kg, Start d ate: 08/24/16 17:00:00 CDT, Duration: 30 day, Stop date: 09/23/16 9:00:00 CDT Notes: (Same As: Aldactone) Start Date: 08/24/16 Stop Date: 08/27/16 Status: Discontinued spironolactone 100 mg, 2 tab, Route: PO, Drug form: TAB, Daily, Dosing Weight 186.989, kg, Star t date: 08/28/16 9:00:00 CDT, Duration: 30 day, Stop date: 09/26/16 9:00:00 CDT Notes: (Same As: Aldactone) Start Date: 08/28/16 Stop Date: 08/31/16 Status: Discontinued spironolactone 50 mg oral tablet 100 mg=2 tab, PO, Daily, # 60 tab, 0 Refill(s) Start Date: 08/30/16 Status: Ordered Tessalon Perles 100 mg, 1 cap, Route: PO, Drug form: CAP, TID, Dosing Weight 190.909, kg, PRN Co ugh, Start date: 08/21/16 0:03:00 CDT, Duration: 30 day, Stop date: 09/20/16 0:0 2:00 CDT Notes: (Same As: Tessalon Perles)"Do Not Crush" Start Date: 08/21/16 Stop Date: 08/31/16 Status: Discontinued thiamine 100 mg, 1 tab, Route: PO, Drug form: TAB, Daily, Dosing Weight 186.989, kg, Star t date: 08/29/16 9:00:00 CDT, Duration: 30 day, Stop date: 09/27/16 9:00:00 CDT Notes: (Same As: Vitamin B1) Start Date: 08/29/16 Stop Date: 08/31/16 Status: Discontinued thiamine + sodium chloride 0.9% INJ 50 mL 100 mg, 1 mL, Route: IV, Drug form: INJ, Daily, Dosing Weight 186.989, kg, Start date: 08/21/16 11:10:00 CDT, Stop date: 09/19/16 11:30:00 CDT Notes: (Same As: Vitamin B1) Start Date: 08/21/16 Stop Date: 08/28/16 Status: Discontinued thiamine 100 mg oral tablet 100 mg=1 tab, PO, Daily, # 100 tab, 0 Refill(s) Start Date: 08/30/16 Stop Date: 08/31/16 Status: Completed tizanidine 4 mg oral tablet 4 mg=1 tab, PO, Bedtime, PRN for muscle spasm, # 30 tab, 0 Refill(s) Start Date: 08/21/16 Status: Ordered Xifaxan 550 mg, 1 tab, Route: NG, Drug form: TAB, BID, Dosing Weight 186.989, kg, Start date: 08/23/16 17:00:00 CDT, Duration: 30 day, Stop date: 09/22/16 9:00:00 CDT Notes: Same as: Xifaxan Start Date: 08/23/16 Stop Date: 08/31/16 Status: Discontinued Zofran 4 mg, 2 mL, Route: IVP, Drug form: INJ, Q8H, Dosing Weight 190.909, kg, PRN Naus ea, Start date: 08/21/16 0:03:00 CDT, Duration: 30 day, Stop date: 09/20/16 0:02 :00 CDT Notes: (Same as: Zofran) MEDICATION WASTE Product Size: 4 mgProduct Was alfredo: ___ mg Start Date: 08/21/16 Stop Date: 08/21/16 Status: Deleted Zosyn + sodium chloride 0.9% INJ 100 mL 3.375 gm, Route: IVPB, ABXQ8H, Dosing Weight 190.909, kg, CrCl >=20 ml/min infuse over 4 hours, Start date: 08/21/16 1:00:00 CDT, Duration: 30 day, Stop date: 09/19/16 17:00:00 CDT Notes: (Same as: Zosyn)Dosing based on Piperacillin component MEDICATION WA ALEKSANDAR Product Size: 3375 mgProduct Wasted: ___ mg Start Date: 08/21/16 Stop Date: 08/28/16 Status: Discontinued Results ELECTROLYTES 1 2 3 Most recent to oldest [Reference Range]: 145 mEq/L (08/25/16 3:33 AM) 151 mEq/L *HI* (08/24/16 5:24 AM) 149 mEq/L *HI* (08/23/16 5:23 AM) Sodium Lvl [135-145 mEq/L] 4.1 mEq/L (08/25/16 3:33 AM) 3.5 mEq/L (08/24/16 5:24 AM) 3.5 mEq/L (08/23/16 5:23 AM) Potassium Lvl [3.5-5.1 mEq/L] 113 mEq/L *HI* (08/25/16 3:33 AM) 121 mEq/L *HI* (08/24/16 5:24 AM) 121 mEq/L *HI* (08/23/16 5:23 AM) Chloride Lvl [95-109 mEq/L] 20 mEq/L *LOW* (08/25/16 3:33 AM) 25 mEq/L (08/24/16 5:24 AM) 20 mEq/L *LOW* (08/23/16 5:23 AM) CO2 [24-32 mEq/L] 16.1 mEq/L (08/25/16 3:33 AM) 8.5 mEq/L *LOW* (08/24/16 5:24 AM) 11.5 mEq/L (08/23/16 5:23 AM) AGAP [10.0-20.0 mEq/L] CHEM PANEL 1 2 3 Most recent to oldest [Reference Range]: 0.85 mg/dL (08/25/16 3:33 AM) 0.93 mg/dL (08/24/16 5:24 AM) 0.98 mg/dL (08/23/16 5:23 AM) Creatinine Lvl [0.50-1.40 mg/dL] 94 mL/min/1.73m2 1 *NA* (08/25/16 3:33 AM) 88 mL/min/1.73m2 2 *NA* (08/24/16 5:24 AM) 83 mL/min/1.73m2 3 *NA* (08/23/16 5:23 AM) eGFR 6 mg/dL *LOW* (08/25/16 3:33 AM) 11 mg/dL (08/24/16 5:24 AM) 12 mg/dL (08/23/16 5:23 AM) BUN [7-22 mg/dL] 7 (08/25/16 3:33 AM) 12 (08/24/16 5:24 AM) 12 (08/23/16 5:23 AM) B/C Ratio [6-25] 107 mg/dL *HI* (08/25/16 3:33 AM) 123 mg/dL *HI* (08/24/16 5:24 AM) 122 mg/dL *HI* (08/23/16 5:23 AM) Glucose Lvl [70-99 mg/dL] 6.0 g/dL *LOW* (08/25/16 3:33 AM) 6.1 g/dL *LOW* (08/24/16 5:24 AM) 6.4 g/dL (08/23/16 5:23 AM) Total Protein [6.4-8.4 g/dL] 2.4 g/dL *LOW* (08/25/16 3:33 AM) 2.5 g/dL *LOW* (08/24/16 5:24 AM) 2.5 g/dL *LOW* (08/23/16 5:23 AM) Albumin Lvl [3.5-5.0 g/dL] 3.6 g/dL (08/25/16 3:33 AM) 3.6 g/dL (08/24/16 5:24 AM) 3.9 g/dL (08/23/16 5:23 AM) Globulin [2.7-4.2 g/dL] 0.7 (08/25/16 3:33 AM) 0.7 (08/24/16 5:24 AM) 0.6 *LOW* (08/23/16 5:23 AM) A/G Ratio [0.7-1.6] 7.8 mg/dL *LOW* (08/25/16 3:33 AM) 7.9 mg/dL *LOW* (08/24/16 5:24 AM) 8.0 mg/dL *LOW* (08/23/16 5:23 AM) Calcium Lvl [8.5-10.5 mg/dL] 1.8 mg/dL *LOW* (08/23/16 5:23 AM) Phosphorus [2.5-4.5 mg/dL] 2.2 mg/dL (08/23/16 5:23 AM) 1.5 mg/dL *LOW* (08/21/16 1:33 AM) 1.5 mg/dL *LOW* (08/20/16 6:58 PM) Magnesium Lvl [1.8-2.4 mg/dL] 37 unit/L (08/25/16 3:33 AM) 33 unit/L (08/24/16 5:24 AM) 28 unit/L (08/23/16 5:23 AM) ALT [0-65 unit/L] 78 unit/L *HI* (08/25/16 3:33 AM) 56 unit/L *HI* (08/24/16 5:24 AM) 62 unit/L *HI* (08/23/16 5:23 AM) AST [0-37 unit/L] 88 unit/L (08/25/16 3:33 AM) 80 unit/L (08/24/16 5:24 AM) 78 unit/L (08/23/16 5:23 AM) Alk Phos [39-136 unit/L] 3.9 mg/dL *HI* (08/25/16 3:33 AM) 4.7 mg/dL *HI* (08/24/16 5:24 AM) 4.3 mg/dL *HI* (08/23/16 5:23 AM) Bili Total [0.2-1.3 mg/dL] 58 unit/L *LOW* (08/20/16 6:58 PM) Lipase Lvl [73-393 unit/L] 89.0 uMol/L *HI* (08/31/16 5:59 AM) 138.0 uMol/L *HI* (08/30/16 12:12 PM) 161.0 uMol/L *HI* (08/29/16 5:33 AM) Ammonia [<=45.0 uMol/L] 3.2 mMol/L *HI* (08/21/16 9:20 AM) 2.6 mMol/L *HI* (08/21/16 4:58 AM) 3.9 mMol/L *HI* (08/20/16 6:58 PM) Lactic Acid Lvl [0.5-2.2 mMol/L] 1Result Comment: The eGFR is calculated using the [...] from the National Kid[employer] Disease Education Program ( NKDEP) which additionally recommends that when the eGFR is used in patients with extremes of body mass index for purposes of drug dosing, the eGFR should be mul tiplied by the estimated BMI. 2Result Comment: The eGFR is calculated using the [...] from the National Kid[employer] Education Program ( NKDEP) which additionally recommends that when the eGFR is used in patients with extremes of body mass index for purposes of drug dosing, the eGFR should be mul tiplied by the estimated BMI. 3Result Comment: The eGFR is calculated using the [...] from the National Kidney Disease Education Program ( NKDEP) which additionally recommends that when the eGFR is used in patients with extremes of body mass index for purposes of drug dosing, the eGFR should be mul tiplied by the estimated BMI. CARDIAC ENZYMES 1 2 3 Most recent to oldest [Reference Range]: 350 unit/L *HI* (08/20/16 6:58 PM) Total CK [12-191 unit/L] 2.4 ng/mL (08/20/16 6:58 PM) CK MB [0.5-3.6 ng/mL] 0.7 (08/20/16 6:58 PM) CK MB Index [0.0-2.5] 0.08 ng/mL (08/20/16 6:58 PM) Troponin-I [0.00-0.40 ng/mL] ANEMIA STUDY 1 2 3 Most recent to oldest [Reference Range]: 1073 pg/mL (08/21/16 3:00 PM) Vitamin B12 Lvl [254-1320 pg/mL] 23.6 ng/mL (08/21/16 3:00 PM) Folate Lvl [>=3.0 ng/mL] DRUG SCREEN 1 2 3 Most recent to oldest [Reference Range]: Negative (08/20/16 11:30 PM) U Amph Scr [Negative] Negative (08/20/16 11:30 PM) U Margaux Scr [Negative] Negative (08/20/16 11:30 PM) U Benzodia Scr [Negative] Negative (08/20/16 11:30 PM) U Cocaine Scr [Negative] Positive *ABN* (08/20/16 11:30 PM) U Opiate Scr [Negative] Negative (08/20/16 11:30 PM) U Phencyc Scr [Negative] Negative (08/20/16 11:30 PM) U Cannab Scr [Negative] See Note (08/20/16 11:30 PM) UDS Note TOXICOLOGY 1 2 3 Most recent to oldest [Reference Range]: <2 (08/20/16 6:58 PM) Acetaminoph Lvl [10-20] <1.7 mg/dL (08/20/16 6:58 PM) Salicylate Lvl [0.0-30.0 mg/dL] <.003 % *NA* (08/20/16 6:58 PM) Etoh (%) <3 mg/dL *NA* (08/20/16 6:58 PM) Ethanol Lvl URINE AND STOOL 1 2 3 Most recent to oldest [Reference Range]: Clear (08/20/16 11:30 PM) UA Turbidity [Clear] Angelic *NA* (08/20/16 11:30 PM) UA Color 6.0 (08/20/16 11:30 PM) UA pH [5.0-8.0] 1.025 (08/20/16 11:30 PM) UA Spec Grav [<=1.030] Negative mg/dL *NA* (08/20/16 11:30 PM) UA Glucose [Negative mg/dL] Negative (08/20/16 11:30 PM) UA Blood [Negative] Trace mg/dL *ABN* (08/20/16 11:30 PM) UA Ketones [Negative mg/dL] 30 mg/dL *ABN* (08/20/16 11:30 PM) UA Protein [Negative mg/dL] <=1.0 mg/dL *NA* (08/20/16 11:30 PM) UA Urobilinogen [0.1-1.0 mg/dL] Negative *NA* (08/20/16 11:30 PM) UA Bili [Negative] Negative (08/20/16 11:30 PM) UA Leuk Est [Negative] Negative (08/20/16 11:30 PM) UA Nitrite [Negative] 2 /HPF (08/20/16 11:30 PM) UA WBC [0-5 /HPF] 7 /HPF *HI* (08/20/16 11:30 PM) UA RBC [0-2 /HPF] Occasional /LPF *NA* (08/20/16 11:30 PM) UA Sq Epi [Few /LPF] 5 /LPF *HI* (08/20/16 11:30 PM) UA Hyal Cast [0-2 /LPF] Few /LPF *NA* (08/20/16 11:30 PM) UA Mucus [None Seen /LPF] IMMUNOLOGY 1 2 3 Most recent to oldest [Reference Range]: Negative *NA* (08/21/16 3:00 PM) HIV Ag/Ab 4th Gen [Negative] Negative *NA* (08/21/16 3:00 PM) Negative *NA* (08/21/16 1:33 AM) Hep Bs Ag [Negative] Negative *NA* (08/21/16 3:00 PM) Negative *NA* (08/21/16 1:33 AM) Hep B Core IgM [Negative] Negative *NA* (08/21/16 3:00 PM) Negative *NA* (08/21/16 1:33 AM) Hep A IgM [Negative] Negative *NA* (08/21/16 3:00 PM) Negative *NA* (08/21/16 1:33 AM) Hep C Ab HEMATOLOGY 1 2 3 Most recent to oldest [Reference Range]: 8.6 K/CMM (08/25/16 3:33 AM) 7.9 K/CMM (08/24/16 5:24 AM) 7.9 K/CMM (08/23/16 5:23 AM) WBC [3.7-10.4 K/CMM] 3.75 M/CMM *LOW* (08/25/16 3:33 AM) 3.71 M/CMM *LOW* (08/24/16 5:24 AM) 4.00 M/CMM *LOW* (08/23/16 5:23 AM) RBC [4.70-6.10 M/CMM] 13.5 g/dL *LOW* (08/25/16 3:33 AM) 13.2 g/dL *LOW* (08/24/16 5:24 AM) 14.2 g/dL (08/23/16 5:23 AM) Hgb [14.0-18.0 g/dL] 37.8 % *LOW* (08/25/16 3:33 AM) 37.2 % *LOW* (08/24/16 5:24 AM) 40.9 % *LOW* (08/23/16 5:23 AM) Hct [42.0-54.0 %] 100.9 fL *HI* (08/25/16 3:33 AM) 100.1 fL *HI* (08/24/16 5:24 AM) 102.1 fL *HI* (08/23/16 5:23 AM) MCV [80.0-94.0 fL] 36.1 pg *HI* (08/25/16 3:33 AM) 35.5 pg *HI* (08/24/16 5:24 AM) 35.4 pg *HI* (08/23/16 5:23 AM) MCH [27.0-31.0 pg] 35.7 g/dL (08/25/16 3:33 AM) 35.4 g/dL (08/24/16 5:24 AM) 34.6 g/dL (08/23/16 5:23 AM) MCHC [32.0-36.0 g/dL] 15.4 % *HI* (08/25/16 3:33 AM) 15.4 % *HI* (08/24/16 5:24 AM) 15.5 % *HI* (08/23/16 5:23 AM) RDW [11.5-14.5 %] 99 K/CMM *LOW* (08/25/16 3:33 AM) 96 K/CMM *LOW* (08/24/16 5:24 AM) 93 K/CMM *LOW* (08/23/16 5:23 AM) Platelet [133-450 K/CMM] 9.1 fL (08/25/16 3:33 AM) 8.6 fL (08/24/16 5:24 AM) 8.9 fL (08/23/16 5:23 AM) MPV [7.4-10.4 fL] 59.2 % (08/25/16 3:33 AM) 56.0 % (08/24/16 5:24 AM) 55.4 % (08/23/16 5:23 AM) Segs [45.0-75.0 %] 6.0 % (08/24/16 5:24 AM) 27.0 % *HI* (08/21/16 4:58 AM) Bands [0.0-11.0 %] 19.8 % *LOW* (08/25/16 3:33 AM) 17.0 % *LOW* (08/24/16 5:24 AM) 19.7 % *LOW* (08/23/16 5:23 AM) Lymphocytes [20.0-40.0 %] 0.0 % (08/24/16 5:24 AM) 0.0 % (08/21/16 4:58 AM) Atypical Lymphs [<=0.0 %] 14.3 % *HI* (08/25/16 3:33 AM) 11.0 % (08/24/16 5:24 AM) 18.7 % *HI* (08/23/16 5:23 AM) Monocytes [2.0-12.0 %] 6.2 % *HI* (08/25/16 3:33 AM) 8.0 % *HI* (08/24/16 5:24 AM) 5.7 % *HI* (08/23/16 5:23 AM) Eosinophils [0.0-4.0 %] 0.5 % (08/25/16 3:33 AM) 1.0 % (08/24/16 5:24 AM) 0.5 % (08/23/16 5:23 AM) Basophils [0.0-1.0 %] 1.0 % (08/24/16 5:24 AM) Metamyelocytes [0.0-1.0 %] 5.1 K/CMM (08/25/16 3:33 AM) 4.9 K/CMM (08/24/16 5:24 AM) 4.4 K/CMM (08/23/16 5:23 AM) Segs-Bands # [1.5-8.1 K/CMM] 1.7 K/CMM (08/25/16 3:33 AM) 1.3 K/CMM (08/24/16 5:24 AM) 1.6 K/CMM (08/23/16 5:23 AM) Lymphocytes # [1.0-5.5 K/CMM] 1.2 K/CMM *HI* (08/25/16 3:33 AM) 0.9 K/CMM *HI* (08/24/16 5:24 AM) 1.5 K/CMM *HI* (08/23/16 5:23 AM) Monocytes # [0.0-0.8 K/CMM] 0.5 K/CMM (08/25/16 3:33 AM) 0.6 K/CMM *HI* (08/24/16 5:24 AM) 0.5 K/CMM (08/23/16 5:23 AM) Eosinophils # [0.0-0.5 K/CMM] 0.1 K/CMM (08/24/16 5:24 AM) 0.1 K/CMM (08/21/16 4:58 AM) Basophils # [0.0-0.2 K/CMM] 100 *NA* (08/24/16 5:24 AM) Tot Cell Ct 1+ *ABN* (08/25/16 3:33 AM) 1+ *ABN* (08/24/16 5:24 AM) 1+ *ABN* (08/23/16 5:23 AM) Macrocyte [None Seen] Normal (08/24/16 5:24 AM) Normal (08/21/16 4:58 AM) Plt Morph 18.3 seconds *HI* (08/20/16 6:58 PM) PT [12.0-14.7 seconds] 1.49 *HI* (08/20/16 6:58 PM) INR [0.85-1.17] 36.0 seconds *HI* (08/20/16 6:58 PM) PTT [22.9-35.8 seconds] TUMOR MARKERS 1 2 3 Most recent to oldest [Reference Range]: 5.7 ng/mL (08/24/16 5:24 AM) AFP TM [0.0-11.0 ng/mL] MOLECULAR DIAGNOSTIC 1 2 3 Most recent to oldest [Reference Range]: Negative (08/20/16 11:30 PM) C difficile DNA [Negative] Immunizations No data available for this section Procedures Procedure Date Related Diagnosis Body Site Knee arthroplasty Social History Social History Type Response Alcohol Current, Type Beer, Liquor. Frequency: 1-2 times per month. Smoking Status Never smoker; Type: Chewing tobacco; Exposure to Tobacco Smoke None; Cigarette Smoking Last 365 Days No; Reg Smoking Cessation Counseling No Assessment and Plan Extracted from: Title: General Admission H&P * Author: Carlton Orosco MD Date: 08/20/16 Impression and Plan 60 yo with HTN, morbid obseity with confusion - Altered mental state likely from hepatic encephalopathy with possible seizures his INR, albumin, thrombocytopenia, elevated lactate suggest liver cirrhosis will get hepatitis panel, US liver Lactulose for now, EEG to follow - Sinus tachycardia with elevated lactate suspicon for infection/ SBP blood cultures Zosyn for now - HTN resume home meds when known - morbid obesity to be counselled when mental state improves DVT ppx: SCD, no chemical ppx in view of thrombocytopenia DISPO: expect ~ 2 MN stay
--- OUTSIDE RECORDS SUMMARY | 2018-04-02 00:21 | XMS REPORT ---
Author Author [facility] Address Unknown Phone Unavailable Care Team Providers Care Sizer Hand Name Role Phone JADEMIShabnamIAN Unavailable Unavailable Problems This patient has no known problems. Allergies, Adverse Reactions, Alerts This patient has no known allergies or adverse reactions. Medications This patient has no known medications. Results Test Description Test Time Test Comments Text Results Atomic Results Result Comments KNEE LEFT THREE VIEWS 2018-01-15 20:18:00 [place] [address] Patient Name: JERMAINE POMPA MR #: [id number] : 1955 Age/Sex: 62/M Req #: [id number] Adm Physician: Ordered by: CHARLENE CM CLEAT FEEDER Report #: [id number] Location: ER Room/Bed: Procedure: [id number] DX/KNEE LEFT THREE VIEWS Exam Date: 01/15/18 Exam Time: 1950 REPORT STATUS: Signed KNEE LEFT THREE VIEWS - 3 views HISTORY: Pain. Fall. COMPARISON: None available. FINDINGS: Bones: No acute displaced fracture. Osseous alignment is within normal limits. Joints: Moderate tricompartmental degenerative changes. Significant calcification of the quadriceps tendon, likely from previous quadriceps tendon injury and subsequent fracture and healing with heterotopic bone formation. Soft tissues: The soft tissues appear unremarkable. IMPRESSION: Moderate tricompartmental degenerative changes. Significant calcification of the quadriceps tendon, likely from previous quadriceps tendon injury and subsequent fracture and healing with heterotopic bone formation. Signed by: Dr. Tomasa Chua M.D. on 01/15/2018 8:20 PM Dictated By: TOMASA CHUA MD 19 Transcribed By: TROY on 01/15/182019 COPY TO: CHARLENE CM NP HIP LEFT 2-3 VW (+/- PELVIS) 2018-01-15 20:17:00 [place] [address] Patient Name: JERMAINE POMPA MR #: [id number] : 1955 Age/Sex: 62/M Req #: [id number] Adm Physician: Ordered by: CHARLENE CM NP Report #: [id number] Location: ER Room/Bed: Procedure: [id number] DX/HIP LEFT 2-3 VW (+/- PELVIS) Exam Date: Exam Time: REPORT STATUS: Signed HIP LEFT 2-3 VW (+/- PELVIS) - 3 views HISTORY: Pain. Fall. COMPARISON: None available. FINDINGS: Bones: No acute displaced fracture. Osseous alignment is within normal limits. Joints: The joint spaces are well-maintained. Soft tissues: The soft tissues appear unremarkable. IMPRESSION: No acute radiographic abnormality. Signed by: Dr. Tomasa Chua M.D. on 01/15/2018 8:18 PM Dictated By: TOMASA CHUA MD 17 Transcribed By: TROY on 01/15/182017 COPY TO: CHARLENE CM NP
[2018-04-02 01:32] LABS: EOSINOPHILS # (AUTO) 0.1 (0.0-0.4); EOSINOPHILS % 3.2 % (0.0-6.0); HEMATOCRIT 36.3 % (38.2-49.6); HEMOGLOBIN 12.5 g/dL (14.0-18.0); LYMPHOCYTES # (AUTO) 0.8 (1.0-3.2); LYMPHOCYTES % 19.2 % (18.0-39.1); MEAN CORPUSCULAR HGB CONC 34.4 g/dL (31-35); MEAN CORPUSCULAR VOLUME 104.6 fL (81-99); MONOCYTES # (AUTO) 0.4 (0.2-0.8); MONOCYTES % 10.1 % (4.4-11.3); NEUTROPHILS # (AUTO) 2.7 (2.1-6.9); NEUTROPHILS % 65.8 % (38.7-80.0); PLATELET COUNT 89 x10e3/uL (140-360); RED BLOOD COUNT 3.47 x10e6/uL (4.3-5.7); RED CELL DISTRIBUTION WIDTH 15.5 % (11.7-14.4)
[2018-04-02 01:42] LABS: INR 1.37
[2018-04-02 01:43] LABS: PARTIAL THROMBOPLASTIN TIME 40.1 seconds (23.8-35.5)
[2018-04-02 01:49] LABS: INFLUENZAE A&B ANTIGEN (RAPID) NEGATIVE (NEGATIVE); STREPTOCOCCUS GRP A ANTIGEN NEGATIVE (NEGATIVE)
--- NOTE | 2018-04-02 01:51 | Diagnostic Imaging Report ---
EXAMINATION: CHEST 2 VIEWS INDICATION: Cough, shortness of breath. COMPARISON: None FINDINGS: PA and lateral views TUBES and LINES: None. LUNGS: Lungs are well inflated. There is mild bibasilar atelectasis. There is no evidence of pneumonia or pulmonary edema. PLEURA: No pleural effusion or pneumothorax. HEART AND MEDIASTINUM: The cardiomediastinal silhouette is unremarkable. BONES AND SOFT TISSUES: No acute osseous lesion. Soft tissues are unremarkable. UPPER ABDOMEN: No free air under the diaphragm. IMPRESSION: No acute thoracic abnormality. Signed by: DR. David Howell MD on 04/02/2018 1:47 AM
[2018-04-02 01:52] LABS: ALANINE AMINOTRANSFERASE 34 IU/L (0-55); ALBUMIN 2.2 g/dL (3.5-5.0); ALBUMIN/GLOBULIN RATIO 0.5 (0.8-2.0); ALKALINE PHOSPHATASE 181 IU/L (40-150); ANION GAP 12.7 mmol/L (8-16); BLOOD UREA NITROGEN 11 mg/dL (7-26); BUN/CREATININE RATIO 14 (6-25); CALCIUM 8.7 mg/dL (8.4-10.2); CARBON DIOXIDE 23 mmol/L (22-29); CHLORIDE 105 mmol/L (98-107); CREATINE KINASE 75 IU/L (30-200); CREATININE, SERUM 0.76 mg/dL (0.72-1.25); EST GLOMERULAR FILTRATION RATE > 60 ML/MIN (60-); GLUCOSE 116 mg/dL (74-118); MAGNESIUM 1.5 MG/DL (1.3-2.1); POTASSIUM 3.7 mmol/L (3.5-5.1); SODIUM 137 mmol/L (136-145)
[2018-04-02] MEDS ORDERED: ALBUTEROL SULF 0.083% NEB SOLN 3 ML NEB NEB STA ×2 (02:21→04:17)
[2018-04-02] MEDS ORDERED: METHYLPREDNISOLONE SOD SUCC 125 MG/2ML VIAL IV STA (02:24)
--- NOTE | 2018-04-02 02:26 | NUR ---
RT CALLED FOR TREATMENT.
[2018-04-02] MEDS ORDERED: IPRATROPIUM BROMIDE 0.02% 2.5 ML NEB NEB ONE ×2 (02:30→04:30)
[2018-04-02] MEDS ORDERED: FUROSEMIDE INJ 10 MG/ML 4 ML VIAL IV ONE (04:30)
[2018-04-02 04:54] LABS: ABG HCO3 26 mmol/L (23-28); ABG PCO2 44 mmHg (41-51); ABG PH 7.38 (7.31-7.41); ABG PO2 75 mmHg (80-105)
[2018-04-02 05:56] LABS: BILIRUBIN,URINE 2+ (NEGATIVE); CLARITY,URINE CLEAR (CLEAR); COLOR,URINE AMBER (YELLOW); KETONES,URINE NEGATIVE (NEGATIVE); LEUKOCYTE ESTERASE ,URINE NEGATIVE (NEGATIVE); NITRITE,URINE NEGATIVE (NEGATIVE); PROTEIN,URINE DIPSTICK NEGATIVE (NEGATIVE); URINE UROBILINOGEN 4 mg/dL (0.2 - 1)
[2018-04-02 06:03] LABS: BACTERIA,URINE RARE /HPF; WBC,URINE (MAN) 0-5 /HPF (0-5)
[2018-04-02 06:04] LABS: EPITHELIAL CELLS,URINE RARE /LPF; MUCUS,URINE MODERATE (RARE); RENAL EPITHELIAL CELLS,URINE RARE; TRANSITIONAL EPI CELLS,URINE RARE
[2018-04-02] MEDS ORDERED: ALBUTEROL SULF 0.083% NEB SOLN 3 ML NEB NEB SCH ×2 (06:15→07:00)
[2018-04-02] MEDS ORDERED: DEXTROSE 50% SYRINGE 50 ML IV PRN (06:15)
[2018-04-02] MEDS: CEFEPIME HCL 2 GM VIAL IV SCH ×2 (07:10→17:40)
[2018-04-02] MEDS: AZITHROMYCIN 500MG/NS 250 ML 250 ML IV SCH ×2 (07:10→08:53)
[2018-04-02 07:50] LABS: CREATINE KINASE MB 2.1 ng/mL (0-5.0)
[2018-04-02] MEDS: INSULIN LISPRO 100 UNIT/1 ML 3ML VIAL SQ SCH ×4 (08:53→20:19)
[2018-04-02] MEDS: FUROSEMIDE INJ 10 MG/ML 4 ML VIAL IV SCH ×2 (10:31→20:14)
--- NOTE | 2018-04-02 10:49 | History and Physical ---
CHIEF COMPLAINT Shortness of breath. HISTORY OF PRESENT ILLNESS This is a 62-year-old white man who presents to [facility] Emergency Room with a 3-day history of worsening cough, congestion, and shortness of breath. The patient also complains of diffuse myalgias and sore throat. The patient states he has a dry, hacking cough. The patient states 2 days ago he did have fever. In the emergency room, influenza type A and B screen antigen was negative. Group-A strep screen was also negative. The patient was found to have a white blood cell count of 4000 with 65% segmented neutrophils. Hemoglobin is 12.5 g/dL. Platelet count is 89,000. The patient has a history of chronic pancytopenia secondary to liver cirrhosis. Patient was found to have prothrombin time and INR of 18.0 and 1.37 respectively. The patient's arterial blood gas revealed pH 7.38, pCO2 44, pO2 75. The patient's BUN and creatinine are 11 and 0.76 respectively. Potassium is 3.7. Lactic acid level is slightly elevated at 18.9. The patient's B-type natriuretic peptide level is 46. The patient's AST and ALT are 71 and 34 respectively. Albumin level is 2.2 g/dL. Chest x-ray performed in the emergency room revealed well inflated lungs with mild bibasilar atelectasis, but no clear evidence of pneumonia or pulmonary edema is appreciated. The patient was admitted for further evaluation and treatment. REVIEW OF SYSTEMS GENERAL: Weight has been stable. He had fever and chills 2 days ago, since resolved. HEENT: No headache, no vision changes, but complains of sore throat, nasal congestion and postnasal drainage. CARDIOVASCULAR: Worsening shortness of breath, cough and chest congestion over the last 3 days. Patient states the cough is nonproductive. GI: No nausea, vomiting or constipation. History of liver cirrhosis. : No BPH or UTI symptoms. NEUROMUSCULAR: Has chronic back pain. Patient states he has chronic swelling in his bilateral lower legs. PAST MEDICAL HISTORY 1. Liver cirrhosis secondary to fatty liver disease. 2. Fatty liver disease. 3. Pancytopenia secondary to liver cirrhosis. 4. Extreme obesity. BMI 62. 5. Chronic diastolic congestive heart failure. 6. Obstructive sleep apnea. 7. Chronic bilateral lower extremity lymphedema. 8. Depression. 9. Lipodermatosclerosis. 10. Restless legs syndrome. 11. Hypertensive heart disease. 12. Chronic back pain secondary to lumbar disk disease. FAMILY HISTORY: Father had diabetes mellitus. SOCIAL HISTORY: This man is a , and he currently lives in his house, but his adult daughter stays with him. The patient is retired. No personal tobacco use, but he was exposed to second-hand tobacco smoke from his for many years. Drinks alcohol rarely. SURGICAL HISTORY: Left knee surgery as a teenager. ALLERGIES: NO KNOWN DRUG ALLERGIES. HOME MEDICATIONS 1. Tizanidine 4 mg every night for leg cramping. 2. Pramipexole 0.25 mg once daily. 3. Lactulose 10 grams t.i.d. 4. Furosemide 40 mg b.i.d. 5. Lisinopril 10 mg daily. 6. Lexapro 20 mg daily. 7. Carisoprodol 350 mg nightly. PHYSICAL EXAMINATION GENERAL: He is awake, alert and fully oriented. He does not appear to be in any respiratory distress. VITAL SIGNS: Oxygen saturation at this time is 94% on 2 liters. The patient's oxygen saturation when he arrived in the emergency room was 98% on room air. The patient's heart rate is 90, respiratory rate 22, blood pressure 154/80, temperature 98.6. Height is 5 feet 7 inches, and weight is 400 pounds. BMI is 62. INTEGUMENT: Skin is warm and dry. No pallor, jaundice or diaphoresis. HEENT: Anicteric sclerae with moist mucous membranes. NECK: Supple. Difficult to assess for jugular venous distention because of the patient's body habitus. CARDIOVASCULAR: Distant heart sounds. Tachycardic heart rate and rhythm. LUNGS: Coarse bronchial breath sounds bilaterally. ABDOMEN: Extremely obese. He has a large, pendulous abdominal pannus. EXTREMITIES: The patient has skin thickening and discoloration to bilateral legs consistent with lipodermatosclerosis from his chronic lower extremity venous stasis. NEUROLOGIC: No gross focal deficits appreciated. DIAGNOSES 1. Acute bronchitis. 2. Zqtrx-md-dnkivla diastolic congestive heart failure. 3. Chronic bronchitis. 4. Liver cirrhosis secondary to fatty liver disease. 5. Pancytopenia secondary to liver cirrhosis. 6. Extreme obesity. Body mass index is 62. 7. Obstructive sleep apnea. PLAN 1. Order 2-D echocardiogram. 2. Intravenous antibiotics. 3. Supplemental oxygen. 4. Nebulized bronchodilators. 5. Consult cardiology. 6. Intravenous furosemide. 7. Renew home medications. 8. Follow complete blood count as the patient has a history of pancytopenia. I spent an hour in the care of this patient. Job#: [id number]
[2018-04-02] MEDS: IPRATROPIUM BROMIDE 0.02% 2.5 ML NEB NEB SCH ×2 (10:51→19:00)
[2018-04-02] MEDS ORDERED: IPRATROPIUM BROMIDE 0.02% 2.5 ML NEB NEB SCH (12:00)
[2018-04-02] MEDS: ALBUTEROL SULF 0.083% NEB SOLN 3 ML NEB NEB SCH ×2 (13:00→19:00)
[2018-04-02] MEDS ORDERED: IPRATROPIUM BROMIDE 0.02% 2.5 ML NEB NEB PRN (13:00)
[2018-04-02] MEDS ORDERED: ALBUTEROL SULF 0.083% NEB SOLN 3 ML NEB NEB PRN (13:00)
[2018-04-02] MEDS ORDERED: ENOXAPARIN SOD INJ 40 MG/0.4 ML SYR SC NR (13:15)
[2018-04-02] MEDS: METHYLPREDNISOLONE SOD SUCC 40 MG/ML VIAL IV SCH (13:33)
[2018-04-02] MEDS ORDERED: METHYLPREDNISOLONE SOD SUCC 125 MG/2ML VIAL IV SCH ×2 (14:00)
--- NOTE | 2018-04-02 15:53 | Consultation ---
DATE OF CONSULTATION: April 02, 2018 CARDIOLOGY CONSULTATION REASON FOR CONSULTATION: Diastolic heart failure. HISTORY OF PRESENT ILLNESS: This is a 62-year-old man with a history of cirrhosis, chronic diastolic heart failure, morbid obesity, obstructive sleep apnea, chronic venous insufficiency, lower extremity lymphedema, hypertension, hyperlipidemia, who presented to the emergency department with cough, sputum production, and shortness of breath for the last couple of days. He has had subjective upper respiratory tract infection symptoms. He denies any chest pain or pressure. He is fairly sedentary. Has no exertional symptoms. Upon arrival here, he is noted to have 2 sets of negative cardiac enzymes with a BNP of 46. REVIEW OF SYSTEMS: A 12-point review of systems was conducted, and is negative other than stated above in the HPI. PAST MEDICAL HISTORY: Hypertension, hyperlipidemia, morbid obesity, obstructive sleep apnea, cirrhosis, diastolic heart failure. PAST SURGICAL HISTORY: None recent. PAST FAMILY HISTORY: No premature coronary artery disease or sudden cardiac . SOCIAL HISTORY: Second-hand smoke exposure. Denies any current illicit drug use, alcohol use, tobacco use. ALLERGIES: NO KNOWN DRUG ALLERGIES. MEDICATIONS: See medication reconciliation form. PHYSICAL EXAMINATION VITALS: Patient is afebrile, heart rate 85, respirations are 20, blood pressure is 155/84, oxygen saturation is 98% on 3 liters nasal cannula. GENERAL: He is a chronically ill-appearing man, lying in bed comfortably. No apparent distress. HEENT: Head is normocephalic, atraumatic. Eyes: The extraocular muscles are intact. Conjunctivae clear. NECK: Obese, nontender. CARDIOVASCULAR: Distant heart sounds. Regular rate and rhythm, systolic murmur at the left lower sternal border. LUNGS: Diminished breath sounds. ABDOMEN: Obese, soft, nontender. EXTREMITIES: Chronic lymphedema changes. NEUROLOGIC: No focal deficits noted. CARDIOVASCULAR MEDICATIONS: Reviewed. LABORATORY DATA: Hemoglobin 12.5. Troponin negative x2. BNP is 46. Creatinine is 0.76. Chest x-ray shows no acute thoracic abnormality. IMPRESSIONS 1. Flmaa-mp-ttnrzxj diastolic heart failure. 2. Obesity. 3. Obstructive sleep apnea. 4. Hypertension. 5. Hyperlipidemia. 6. Bronchitis. 7. Cardiac murmur. RECOMMENDATIONS: Will order a 2-D echocardiogram to assess left ventricular systolic function. Suspect the patient has diastolic heart failure. Continue intravenous Lasix and current antihypertensives as you are. Will defer treatment of his antibiotics and bronchodilators to primary team. Will continue to follow closely. Job#: [id number] TA
[2018-04-02 17:35] VITALS: BP 188/81
[2018-04-02 17:42] VITALS: BP 158/82
--- NOTE | 2018-04-02 17:42 | NUR ---
PATIENT ARRIVED TO THE UNIT AROUND 171. HE IS IN STABLE CONDITION. AAOX3, NO ACUTE DISTRESS NOTED. PATIENT ORIENTED TO ROOM, BATHROOM, AND VISITING HOURS. ADMISSION HISTORY AND INITIAL PHYSICAL ASSESSMENT COMPLETED. CALL LIGHT WITHIN REACH. BED IN THE LOWEST POSITION.
[2018-04-02 17:55] VITALS: BP 158/82
--- NOTE | 2018-04-02 18:04 | NUR ---
NOTIFIED RFID ANALYST OF PATIENT'S NEED FOR A BIG BOY BED. SHE STATED SHE WILL ORDER ONE.
--- NOTE | 2018-04-02 19:00 | NUR ---
Received change of shift report from AM nurse. Walking rounds completed.
--- NOTE | 2018-04-02 19:31 | NUR ---
REPORT GIVEN TO ONCOMING NURSE. PATIENT IS RESTING IN BED. NO S/S OF DISTRESS NOTED. CALL LIGHT WITHIN REACH. BED IN THE LOWEST POSITION.
[2018-04-02] MEDS: TIZANIDINE HCL 4 MG TAB PO SCH (20:14)
[2018-04-02] MEDS: ESCITALOPRAM OXALATE 10 MG TAB PO SCH (20:14)
[2018-04-02] MEDS: PRAMIPEXOLE DIHYDROCHLORIDE 0.25 MG TAB PO SCH (20:14)
[2018-04-02 20:46] VITALS: BP 180/77
[2018-04-02] MEDS ORDERED: PRAMIPEXOLE DIHYDROCHLORIDE 1 MG TAB PO SCH (21:00)
[2018-04-02] MEDS ORDERED: CARISOPRODOL 350 MG TAB PO PRN (21:00)
[2018-04-02] MEDS ORDERED: NON-FORMULARY MEDICATION (Escitalopram Oxalate (Lexapro) 20 MG) PO SCH (21:00)
--- NOTE | 2018-04-02 21:18 | NUR ---
Bariatric bed ordered for patient as requested per primary care nurse, will be delivered in AM from [facility]. Confirmation #[id number]
[2018-04-03] VITALS (8 sets, daily range): BP systolic 132–175; BP diastolic 61–74
[2018-04-03] MEDS: METHYLPREDNISOLONE SOD SUCC 40 MG/ML VIAL IV SCH ×2 (02:15→13:37)
[2018-04-03] MEDS: IPRATROPIUM BROMIDE 0.02% 2.5 ML NEB NEB SCH ×5 (03:20→23:40)
[2018-04-03] MEDS: ALBUTEROL SULF 0.083% NEB SOLN 3 ML NEB NEB SCH ×5 (03:20→23:40)
[2018-04-03 05:49] LABS: BASOPHILS % 0.1 % (0.0-1.0); HEMATOCRIT 36.2 % (38.2-49.6); HEMOGLOBIN 12.3 g/dL (14.0-18.0); LYMPHOCYTES # (AUTO) 0.6 (1.0-3.2); LYMPHOCYTES % 6.5 % (18.0-39.1); MEAN CORPUSCULAR HEMOGLOBIN 35.2 pg (28-32); MEAN CORPUSCULAR VOLUME 103.7 fL (81-99); MONOCYTES # (AUTO) 0.2 (0.2-0.8); MONOCYTES % 2.4 % (4.4-11.3); NEUTROPHILS # (AUTO) 7.8 (2.1-6.9); NEUTROPHILS % 90.5 % (38.7-80.0); PLATELET COUNT 67 x10e3/uL (140-360); RED BLOOD COUNT 3.49 x10e6/uL (4.3-5.7); RED CELL DISTRIBUTION WIDTH 15.1 % (11.7-14.4)
[2018-04-03] MEDS: CEFEPIME HCL 2 GM VIAL IV SCH ×2 (05:52→17:16)
[2018-04-03 06:10] LABS: ALANINE AMINOTRANSFERASE 30 IU/L (0-55); ALBUMIN 2.2 g/dL (3.5-5.0); ALBUMIN/GLOBULIN RATIO 0.5 (0.8-2.0); ALKALINE PHOSPHATASE 142 IU/L (40-150); ANION GAP 11.3 mmol/L (8-16); BLOOD UREA NITROGEN 15 mg/dL (7-26); BUN/CREATININE RATIO 21 (6-25); CALCIUM 8.7 mg/dL (8.4-10.2); CARBON DIOXIDE 26 mmol/L (22-29); CHLORIDE 104 mmol/L (98-107); CREATININE, SERUM 0.71 mg/dL (0.72-1.25); EST GLOMERULAR FILTRATION RATE > 60 ML/MIN (60-); GLUCOSE 164 mg/dL (74-118); POTASSIUM 4.3 mmol/L (3.5-5.1); SODIUM 137 mmol/L (136-145)
--- NOTE | 2018-04-03 06:20 | Diagnostic Imaging Report ---
EXAMINATION: CHEST SINGLE (PORTABLE) INDICATION: CHF and possible bibasilar pneumonia ^Y COMPARISON: 04/02/2018 FINDINGS: Limited exam secondary to underpenetration and body habitus. TUBES and LINES: None. LUNGS: Lungs are well inflated. Hazy bibasilar opacities likely secondary to soft tissue attenuation. Consolidation not excluded. PLEURA: No pleural effusion or pneumothorax. HEART AND MEDIASTINUM: Mild enlargement of the cardiac silhouette. BONES AND SOFT TISSUES: No acute osseous lesion. Soft tissues are unremarkable. UPPER ABDOMEN: No free air under the diaphragm. IMPRESSION: Limited exam. Hazy bibasilar opacities likely secondary to soft tissue attenuation. Consolidation not excluded. Recommend repeat radiographs when clinically feasible. Signed by: DR. David Howell MD on 04/03/2018 6:17 AM
[2018-04-03] MEDS: INSULIN LISPRO 100 UNIT/1 ML 3ML VIAL SQ SCH ×4 (07:30→21:09)
[2018-04-03 07:43] LABS: CREATINE KINASE MB 8.4 ng/mL (0-5.0)
--- NOTE | 2018-04-03 07:45 | NUR ---
RECEIVED PATIENT RESTING IN BED. NO ACUTE DISTRESS NOTED. CALL LIGHT WITHIN REACH. BED IN THE LOWEST POSITION.
[2018-04-03] MEDS ORDERED: SODIUM CHLORIDE 0.9% 250ML 250 ML ONE (09:22)
[2018-04-03] MEDS: ENOXAPARIN SOD INJ 40 MG/0.4 ML SYR SC SCH (09:33)
[2018-04-03] MEDS: FUROSEMIDE INJ 10 MG/ML 4 ML VIAL IV SCH ×2 (09:33→21:09)
[2018-04-03] MEDS: AZITHROMYCIN 500MG/NS 250 ML 250 ML IV SCH (09:33)
[2018-04-03] MEDS: LISINOPRIL 10 MG TAB PO SCH (09:33)
--- NOTE | 2018-04-03 16:56 | NUR ---
Nutrition Screen Note RD Recommendation for Physician: Continue diet as ordered Plan of Care: RD following, monitoring for adequacy and tolerance Nutrition reason for involvement: Nutrition Risk Trigger Primary Diagnose(s): COPD, Heart failure, bronchitis Ht:67 in Wt:438lbs BMI:68.6 kg/m2 IBW:148lbs RD Assessment:(04/03/2018) Initial encounter with patient. Pt is eating well and denies any N, V, D nor has any difficulty chewing or swallowing. No significant wt changes besides fluid status changes. Current Diet: 1800 ADA Malnutrition Evaluation (04/03/2018) The patient does not meet criteria for a specified degree of malnutrition at this time. Will re-evaluate at follow-up as appropriate. Diet Education Needs Assessment: Diet education not indicated. Diet Adequacy: Meeting calorie needs, Meeting protein needs, Meeting fluid needs Tolerance: Tolerating PO Nutrition Care Level:Efrain Robles RD, LD, CNSC
--- NOTE | 2018-04-03 19:21 | NUR ---
REPORT GIVEN TO ONCOMING NURSE. PATIENT IS RESTING IN BED, NO ACUTE DISTRESS NOTED. CALL LIGHT WITHIN REACH. BED IN THE LOWEST POSITION.
[2018-04-03] MEDS: ESCITALOPRAM OXALATE 10 MG TAB PO SCH (21:09)
[2018-04-03] MEDS: PRAMIPEXOLE DIHYDROCHLORIDE 0.25 MG TAB PO SCH (21:09)
[2018-04-03] MEDS: TIZANIDINE HCL 4 MG TAB PO SCH (21:10)
[2018-04-04] VITALS (7 sets, daily range): BP systolic 111–151; BP diastolic 56–64
[2018-04-04] MEDS: IPRATROPIUM BROMIDE 0.02% 2.5 ML NEB NEB SCH ×4 (00:50→19:30)
[2018-04-04] MEDS: METHYLPREDNISOLONE SOD SUCC 40 MG/ML VIAL IV SCH ×2 (02:07→14:26)
[2018-04-04] MEDS: CEFEPIME HCL 2 GM VIAL IV SCH ×2 (05:47→16:56)
[2018-04-04] MEDS: ALBUTEROL SULF 0.083% NEB SOLN 3 ML NEB NEB SCH ×3 (07:10→19:30)
--- NOTE | 2018-04-04 07:15 | NUR ---
RECEIVED PATIENT RESTING IN BED. NO S/S OF DISTRESS NOTED. CALL LIGHT WITHIN REACH. BED IN THE LOWEST POSITION.
[2018-04-04] MEDS: AZITHROMYCIN 500MG/NS 250 ML 250 ML IV SCH (08:39)
[2018-04-04] MEDS: ENOXAPARIN SOD INJ 40 MG/0.4 ML SYR SC SCH (08:39)
[2018-04-04] MEDS: LISINOPRIL 10 MG TAB PO SCH (08:39)
[2018-04-04] MEDS: FUROSEMIDE INJ 10 MG/ML 4 ML VIAL IV SCH ×2 (08:39→21:46)
[2018-04-04] MEDS: INSULIN LISPRO 100 UNIT/1 ML 3ML VIAL SQ SCH ×4 (08:39→21:47)
--- NOTE | 2018-04-04 09:35 | NUR ---
NOTIFIED DR. Iveth WRIGHT OF ECHO RESULTS FOR POSSIBLE AORTIC/MITRAL STENOSIS TOLD BY PARKING ENFORCEMENT TECHNICIAN. PER MD HE WILL READ THE ECHO HIMSELF.
--- NOTE | 2018-04-04 19:05 | NUR ---
REPORT GIVEN TO ONCOMING NURSE, WALKING ROUNDS DONE. PATIENT IS RESTING IN BED. NO ACUTE DISTRESS NOTED. CALL LIGHT WITHIN REACH. BED IN THE LOWEST POSITION.
[2018-04-04] MEDS: PRAMIPEXOLE DIHYDROCHLORIDE 0.25 MG TAB PO SCH (21:46)
[2018-04-04] MEDS: ESCITALOPRAM OXALATE 10 MG TAB PO SCH (21:46)
[2018-04-04] MEDS: TIZANIDINE HCL 4 MG TAB PO SCH (21:47)
[2018-04-05] VITALS: BP 108/47
[2018-04-05] MEDS: ALBUTEROL SULF 0.083% NEB SOLN 3 ML NEB NEB SCH ×3 (00:50→13:00)
[2018-04-05] MEDS: METHYLPREDNISOLONE SOD SUCC 40 MG/ML VIAL IV SCH ×2 (02:10→14:23)
[2018-04-05 04:00] VITALS: BP 103/49
[2018-04-05] MEDS: CEFEPIME HCL 2 GM VIAL IV SCH ×2 (05:21→17:17)
--- NOTE | 2018-04-05 06:35 | Diagnostic Imaging Report ---
EXAMINATION: CHEST SINGLE (PORTABLE) INDICATION: pneumonia COMPARISON: Chest x-ray 04/03/2018. FINDINGS: AP view Evaluation limited by soft tissue attenuation and portable technique. TUBES and LINES: None. LUNGS: Lungs are well inflated. Right infrahilar airspace opacity. There is no evidence of pulmonary edema. PLEURA: No pleural effusion or pneumothorax. HEART AND MEDIASTINUM: The cardiomediastinal silhouette is unremarkable. BONES AND SOFT TISSUES: No acute osseous lesion. Soft tissues are unremarkable. UPPER ABDOMEN: No free air under the diaphragm. IMPRESSION: Right infrahilar airspace opacity may represent atelectasis or pneumonia. Signed by: DR. David Howell MD on 04/05/2018 6:32 AM
[2018-04-05] MEDS: IPRATROPIUM BROMIDE 0.02% 2.5 ML NEB NEB SCH ×2 (07:00→13:00)
--- NOTE | 2018-04-05 07:24 | NUR ---
patient resting in bed, on O2, denies any SOB, Not in any distress, denies any pain, assisted him to use restroom, he walks with walker,
[2018-04-05 07:36] LABS: HEMATOCRIT 36.2 % (38.2-49.6); HEMOGLOBIN 12.1 g/dL (14.0-18.0); LYMPHOCYTES # (AUTO) 0.5 (1.0-3.2); LYMPHOCYTES % 7.6 % (18.0-39.1); MEAN CORPUSCULAR HEMOGLOBIN 35.6 pg (28-32); MEAN CORPUSCULAR HGB CONC 33.4 g/dL (31-35); MONOCYTES # (AUTO) 0.2 (0.2-0.8); MONOCYTES % 3.2 % (4.4-11.3); NEUTROPHILS # (AUTO) 5.8 (2.1-6.9); NEUTROPHILS % 88.4 % (38.7-80.0); PLATELET COUNT 58 x10e3/uL (140-360); RED CELL DISTRIBUTION WIDTH 15.3 % (11.7-14.4)
[2018-04-05 07:38] LABS: MEAN CORPUSCULAR VOLUME 106.5 fL (81-99)
[2018-04-05 07:50] LABS: ALANINE AMINOTRANSFERASE 56 IU/L (0-55); ALBUMIN 2.2 g/dL (3.5-5.0); ALBUMIN/GLOBULIN RATIO 0.6 (0.8-2.0); ALKALINE PHOSPHATASE 140 IU/L (40-150); ANION GAP 10.4 mmol/L (8-16); BLOOD UREA NITROGEN 18 mg/dL (7-26); BUN/CREATININE RATIO 22 (6-25); CALCIUM 8.8 mg/dL (8.4-10.2); CARBON DIOXIDE 30 mmol/L (22-29); CHLORIDE 100 mmol/L (98-107); CREATININE, SERUM 0.81 mg/dL (0.72-1.25); EST GLOMERULAR FILTRATION RATE > 60 ML/MIN (60-); GLUCOSE 289 mg/dL (74-118); POTASSIUM 4.4 mmol/L (3.5-5.1); SODIUM 136 mmol/L (136-145)
[2018-04-05] MEDS: INSULIN LISPRO 100 UNIT/1 ML 3ML VIAL SQ SCH ×3 (07:50→16:50)
[2018-04-05 08:10] VITALS: BP 136/72
[2018-04-05] MEDS: AZITHROMYCIN 500MG/NS 250 ML 250 ML IV SCH (08:22)
[2018-04-05] MEDS: FUROSEMIDE INJ 10 MG/ML 4 ML VIAL IV SCH (08:22)
[2018-04-05] MEDS: LISINOPRIL 10 MG TAB PO SCH (08:23)
[2018-04-05] MEDS: ENOXAPARIN SOD INJ 40 MG/0.4 ML SYR SC SCH (08:24)
[2018-04-05 10:56] VITALS: BP 136/72
[2018-04-05 12:00] VITALS: BP 148/68
[2018-04-05] MEDS ORDERED: FENTANYL CITRATE/PF 100MCG/2 ML INJ ONE (15:29)
--- NOTE | 2018-04-05 15:38 | NUR ---
LONG-TERM ACUTE CARE DISCHARGE INFORMATION PATIENT HAS BEEN ACCEPTED TO: NAME: [facility] ADDRESS: [address] [place] [address] ACCEPTING PALLIATIVE CARE NURSE PRACTITIONER: SHUN LOGAN ,CULTURE MANAGER ACCEPTING MD: DR. YOST ROOM: 231 NURSE CALL REPORT TO: [phone] THE FOLLOWING DOCUMENTS MUST ACCOMPANY PATIENT FOR TRANSFER: COPIED CHART: BY BOOM STICK MAN MOT INFO RECEIVED FROM: GURPREET CANO ORDER/RECONCILED MED LIST: PER BEDSIDE NURSE [id number] DNR: N/A Addendum: 04/05/18 at 1700 by Kandace Cohen CM TRANSFER PT AFTER 7PM
--- NOTE | 2018-04-05 15:38 | NUR ---
CASE MANAGEMENT INITIAL ASSESSMENT Creative Engagement Director to bedside to discuss plan of care with patient/family. CM/SW role and care transitions discussed. Anticipated discharge plan discussed along with duration of care. CM/SW discussed patients right to make decisions in care. CM/SW work hours given. Patient lives: SOLD HIS HOME RECENTLY. AT DC WILL MOVE TO [place], [place] IN A TRAILOR ON HIS SISTER'S PROPERTY. Admit/Transfer: ER VIA CAR; DTR. POA/Emergency contact: DTR - MANDI POMPA @ [phone]. IMELDA NIX @ [phone] Current/Previous Home Health: NONE PCP/Follow-up Care: RITIKA. STATES HE WILL DRIVE TO [place] TO SEE DR. 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 STATES HE WILL DRIVE HIMSELF TO [place] AFTER DC'ING FROM [place]. Referral Needs: NONE Education Needs: IMM/PETTY given and signed (if applicable): AT ADM Goal for discharge: WILL DC TO [facility] CM/SW left business card at the bedside with contact information. Name and number was also written on the patients whiteboard. Patient verbalized understanding of discussion. CM will follow-up with ongoing discharge and transition of care needs.
--- NOTE | 2018-04-05 16:06 | NUR ---
Dictated DC summary: [id number]
[2018-04-05] MEDS ORDERED: SODIUM CHLORIDE 0.9% 100 ML ONE (16:15)
--- NOTE | 2018-04-05 16:42 | Discharge Summary ---
ADMIT DIAGNOSES 1. Acute bronchitis. 2. Jeydr-za-zeigfuq diastolic congestive heart failure. 3. Chronic bronchitis. 4. Liver cirrhosis secondary to fatty liver disease. 5. Pancytopenia secondary to liver cirrhosis. 6. Extreme obesity, body mass index 62. 7. Obstructive sleep apnea. DISCHARGE DIAGNOSES 1. Right-sided pneumonia, likely gram-negative angela. 2. Eehar-aa-zzkwqkm diastolic congestive heart failure, resolving. 3. Chronic bronchitis. 4. Liver cirrhosis secondary to fatty liver disease. 5. Pancytopenia secondary to liver cirrhosis. 6. Extreme obesity. Body mass index is 68. 7. Obstructive sleep apnea. HOSPITAL COURSE: This is a 62-year-old white man who was initially admitted to [facility] with a diagnosis of acute bronchitis as well as ajekx-ag-uolikdq diastolic congestive heart failure. Patient's congestive heart failure symptoms resolved dramatically with intravenous furosemide. During this hospitalization, patient had an echocardiogram done which confirmed congestive heart failure with preserved left ventricular ejection fraction. Patient was seen by a swage tender during this hospitalization, namely Dr. Yosvany Warner. During this hospital stay, the patient was diagnosed with right-sided pneumonia. Thus, he was continued on intravenous antibiotics, namely intravenous cefepime and azithromycin. The decision was made to transfer patient to a long-term acute care facility, namely [facility], where he could receive continued intravenous antibiotics for his pneumonia as well as intravenous furosemide for his congestive heart failure and be on intravenous methyl prednisone for his chronic bronchitis exacerbation. The patient's brief hospitalization was unremarkable. The patient's condition on discharge was stable with an overall fair prognosis. DISCHARGE MEDICATIONS 1. Methyl prednisone 40 mg intravenously every 12 hours. 2. Albuterol and sulfate nebulized treatments every 6 hours. 3. Ipratropium nebulized treatments every 6 hours. 4. Humalog insulin sliding scale. 5. Enoxaparin 40 mg subcutaneously daily. 6. Lisinopril 10 mg daily. 7. Furosemide 40 mg intravenously every 12 hours. 8. Azithromycin 250 mg intravenously daily. 9. Cefepime 2 g intravenously every 12 hours. 10. Tizanidine 4 mg nightly. 11. Lexapro 20 mg daily. 12. Mirapex 0.25 mg every night. 13. Carisoprodol 350 mg every night as needed for muscle spasms. FOLLOWUP INSTRUCTIONS: As previously stated, the patient was transferred to a local long-term acute care facility, namely [facility], where he will be under the care of his attending, namely myself, Dr. Anival Yost. ANIVAL YOST MD Job#: [id number] EV
--- NOTE | 2018-04-05 19:20 | NUR ---
Bedside rounds complete with morning nurse. Pt lying in bed 45 degrees. Alert to name. O2 @3L via NC. Denies pain and SOB at this time. No acute distress noted.
[2018-04-05 20:00] VITALS: BP 163/68
--- NOTE | 2018-04-05 21:46 | NUR ---
Pt D/C to [facility] via stretcher by ambulance. A&Ox3. Macias intact and patent, yellow urine. 20g Left AC, SL. No acute distress noted. Family at bedside.
== END 2018-04-05 22:15 | DRG 291 ==
LOC: ER 00:16 → ERHOLD 06:18 → MED/SURG3 17:01
PROVIDERS: ADMIT Internal Medicine; ATTEND Internal Medicine
DX: I11.0 Hypertensive heart disease with heart failure (principal); J18.9 Pneumonia, unspecified organism; D61.818 Other pancytopenia; Z68.44 Body mass index [BMI] 60.0-69.9, adult; J20.9 Acute bronchitis, unspecified; I50.33 Acute on chronic diastolic (congestive) heart failure; K74.60 Unspecified cirrhosis of liver; F32.9 Major depressive disorder, single episode, unspecified; E66.01 Morbid (severe) obesity due to excess calories; G47.33 Obstructive sleep apnea (adult) (pediatric); I87.2 Venous insufficiency (chronic) (peripheral); I89.0 Lymphedema, not elsewhere classified; E78.5 Hyperlipidemia, unspecified; Z77.22 Contact with and (suspected) exposure to environmental tobacco smoke (acute) (chronic); K76.0 Fatty (change of) liver, not elsewhere classified; M62.838 Other muscle spasm
CPT/HCPCS: 36415; 36600; 51700; 71045; 71046; 80053; 81001; 82550; 82553; 82805; 82948; 83518; 83605; 83735; 83880; 84484; 85025; 85610; 85730; 87040; 87070; 87086; 87400; 93005; 93306; 94640; 94644; 94645; 96372; 96374; 96375; 99285; J0456; J0692; J1650; J1940; J2920; J2930; J7050

== ENCOUNTER 2018-04-23 11:23 | Inpatient (IN) | payer MEDICARE ==
[~2018-04-23] VITALS: Ht 175.3 cm; Wt 213.0 kg
[2018-04-23] MEDS ORDERED: FUROSEMIDE INJ 10 MG/ML 4 ML VIAL IV ONE (13:30)
[2018-04-23 13:31] LABS: BASOPHILS % 0.1 % (0.0-1.0); EOSINOPHILS # (AUTO) 0.3 (0.0-0.4); EOSINOPHILS % 2.4 % (0.0-6.0); HEMATOCRIT 34.4 % (38.2-49.6); HEMOGLOBIN 11.8 g/dL (14.0-18.0); LYMPHOCYTES # (AUTO) 0.7 (1.0-3.2); LYMPHOCYTES % 5.3 % (18.0-39.1); MEAN CORPUSCULAR HEMOGLOBIN 36.1 pg (28-32); MEAN CORPUSCULAR HGB CONC 34.3 g/dL (31-35); MEAN CORPUSCULAR VOLUME 105.2 fL (81-99); MONOCYTES % 7.1 % (4.4-11.3); NEUTROPHILS # (AUTO) 11.3 (2.1-6.9); NEUTROPHILS % 84.1 % (38.7-80.0); RED BLOOD COUNT 3.27 x10e6/uL (4.3-5.7); RED CELL DISTRIBUTION WIDTH 16.1 % (11.7-14.4)
--- NOTE | 2018-04-23 13:32 | Diagnostic Imaging Report ---
EXAMINATION: Head CT HISTORY: Altered mental status, status post fall the day before, lethargic, weak. COMPARISON: None. TECHNIQUE: Multidetector axial images were obtained without contrast from the foramen magnum to the vertex . The images were reconstructed using brain and bone algorithms. Thin section brain images were reformatted into coronal and sagittal planes. Image quality: Motion/streaking artifact limits the evaluation of the skull base and posterior cranial fossa. Dose modulation, iterative reconstruction, and/or weight based adjustment of the mA/kV was utilized to reduce the radiation dose to as low as reasonably achievable. FINDINGS: Parenchyma: 1. No abnormal densities. 2. No mass or hemorrhage. No CT evidence of acute territorial vascular insult. Extra-axial spaces:No abnormal density. No extra-axial fluid collections Brain volume: Normal for age. Ventricles: No hydrocephalus or displacement. Arteries: No density suggestive of thrombus. Dural sinuses: No abnormal density. Extra-axial spaces: No abnormal density. Foramen magnum: No mass, Chiari malformation, or basilar invagination. Sella: No obvious mass. Paranasal/mastoid sinuses: Partially visualized partial opacification of the right maxillary sphenoid sinuses, otherwise clear. Skull/Scalp: No lytic or blastic lesions. No fractures. IMPRESSION: No acute posttraumatic intracranial abnormality, particularly no evidence of hemorrhage. Signed by: Dr. Jennifer Hernandez M.D. on 04/23/2018 1:28 PM
[2018-04-23 13:33] LABS: PLATELET COUNT 37 x10e3/uL (140-360)
[2018-04-23 13:55] LABS: ALBUMIN 2.2 g/dL (3.5-5.0); ALBUMIN/GLOBULIN RATIO 0.7 (0.8-2.0); CREATININE, SERUM 1.6 mg/dL (0.72-1.25); MAGNESIUM 2.2 MG/DL (1.3-2.1)
[2018-04-23 14:02] LABS: CALCIUM 10.3 mg/dL (8.4-10.2)
[2018-04-23 14:14] LABS: THYROID STIMULATING HORMONE 1.289 uIU/mL (0.350-4.940)
[2018-04-23 14:32] LABS: ANISOCYTOSIS SLIGHT; PLATELET MORPHOLOGY COMMENT FEW LARGE; RBC MORPHOLOGY COMMENT NORMAL
[2018-04-23 14:33] LABS: PLATELET ESTIMATE MARKEDLY DECREASED
[2018-04-23 14:59] LABS: CLARITY,URINE SL CLOUDY (CLEAR); COLOR,URINE YELLOW (YELLOW); LEUKOCYTE ESTERASE ,URINE TRACE (NEGATIVE); NITRITE,URINE NEGATIVE (NEGATIVE)
[2018-04-23 15:00] LABS: BILIRUBIN,URINE NEGATIVE (NEGATIVE); KETONES,URINE NEGATIVE (NEGATIVE); PROTEIN,URINE DIPSTICK NEGATIVE (NEGATIVE); URINE UROBILINOGEN 0.2 mg/dL (0.2 - 1)
--- NOTE | 2018-04-23 15:09 | Diagnostic Imaging Report ---
Examination: Single AP view of the chest. COMPARISON: April 05, 2018 INDICATION: Shortness of breath DISCUSSION: Lines/tubes: None. Lungs: Enlargement of the central vasculature with edema. Pleura: There is no pleural effusion or pneumothorax. Heart and mediastinum: Heart and mediastinal contour enlarged. Bones and soft tissues: No acute bony abnormalities. IMPRESSION: 1. Cardiomegaly with edema. Signed by: Dr. Vasu Romo M.D. on 04/23/2018 3:06 PM
[2018-04-23 15:16] LABS: BACTERIA,URINE MODERATE /HPF; EPITHELIAL CELLS,URINE MODERATE /LPF; WBC,URINE (MAN) 0-5 /HPF (0-5)
--- NOTE | 2018-04-23 16:05 | NUR ---
After 9 attempts by RT to obtain ABG without success, Dr. Frey obtained ABG to right radial.
[2018-04-23 16:20] LABS: ABG HCO3 30 mmol/L (23-28); ABG PCO2 46 mmHg (41-51); ABG PH 7.43 (7.31-7.41); ABG PO2 95 mmHg (80-105)
[2018-04-23] MEDS ORDERED: ONDANSETRON HCL INJ 2 MG/ML VIAL IV PRN (17:00)
[2018-04-23] MEDS ORDERED: SODIUM CHLORIDE FLUSH 10 ML SYR INJ PRN (17:00)
[2018-04-23] MEDS ORDERED: DEXTROSE 50% SYRINGE 50 ML IV PRN (17:00)
[2018-04-23] MEDS ORDERED: ASPIRIN 81 MG CHEW TAB PO ONE (17:00)
--- NOTE | 2018-04-23 17:11 | NUR ---
Unable to insert Macias catheter at this time. Dr. Asencio at the bedside and notified. No new orders obtained at this time.
[2018-04-23 17:26] LABS: CREATINE KINASE MB 7.5 ng/mL (0-5.0)
--- NOTE | 2018-04-23 17:26 | NUR ---
[facility] H&P: [id number]
[2018-04-23] MEDS ORDERED: MORPHINE SULFATE 2 MG/ML SYR IV PRN (17:30)
[2018-04-23] MEDS ORDERED: CEFEPIME HCL 1 GM VIAL IV SCH (17:30)
[2018-04-23] MEDS ORDERED: CARISOPRODOL 350 MG TAB PO PRN (17:30)
--- NOTE | 2018-04-23 17:45 | NUR ---
Successful insertion of bernal catheter by Dr. Gusman.
[2018-04-23] MEDS: CEFEPIME 1GM/NS 0.9% 50 ML 50 ML IV SCH (17:56)
[2018-04-23] MEDS: MORPHINE SULFATE INJ 4 MG/ML INJ IV PRN (18:15)
[2018-04-23] MEDS: ALBUTEROL/IPRATROPIUM 3 ML NEB NEB SCH (18:45)
--- NOTE | 2018-04-23 18:58 | History and Physical ---
CHIEF COMPLAINT: Confusion and shortness of breath. HISTORY OF PRESENT ILLNESS: This is a 62-year-old white man who presents to [facility] with one day history of worsening shortness of breath and confusion. This gentleman has a known history of sleep apnea, heart failure, and recurrent bouts of hepatic encephalopathy secondary to decompensated liver cirrhosis. Patient was just discharged from a local hospital because of bilateral pneumonia and acute congestive heart failure. Patient apparently suffered a mechanical fall one day prior to his admission, which resulted in a scalp laceration. Patient underwent a CT of the head without contrast in the emergency room on this admission that did not reveal any acute intracranial abnormality. Patient underwent chest x-ray, which revealed findings consistent with congestive heart failure. Patient's B-type natriuretic peptide level is 150. BUN and creatinine are 65 and 1.6 respectively. On April 05, 2018, patient's BUN and creatinine was 18 and 0.81 respectively. In the emergency room, patient was found to have white blood count 13,400 with 84% segmented neutrophils. Patient's hemoglobin is 11.8 g/dL. Platelets are 837,000. Patient had urinalysis done that revealed slightly cloudy yellow urine with moderate bacteria and 11 to 20 red blood cells per high power field and 0 to 5 white blood cells per high power field. It did however, revealed moderate epithelial cells. Patient's serum ammonia level was 77. The patient's arterial blood gas revealed a pH of 7.43, pCO2 of 46 mmHg, and pO2 of 95 mmHg. Patient was admitted for further evaluation and treatment. The adult daughter present states that her father, Mr. Matthias Lamas, is a do not resuscitate. REVIEW OF SYSTEMS GENERAL: Weight is stable. He has been more confused on the last day according to his adult daughter. No fever or chills. HEENT: No headaches. No vision changes, but he did fell and hit his head one day prior to admission. He did not lose consciousness. GI: No nausea, vomiting, diarrhea, or constipation. : Patient had a Macias catheter in place for 3 weeks during his recent hospitalization, but it was just removed few days prior to admission. NEUROMUSCULAR: No limb weakness or numbness. PAST MEDICAL HISTORY 1. Chronic diastolic congestive heart failure. 2. Extreme obesity. BMI of 68. 3. Hypertensive heart disease. 4. Decompensated liver cirrhosis secondary to fatty liver disease. 5. Fatty liver disease. 6. Recurrent hepatic encephalopathy secondary to decompensated liver cirrhosis. 7. Obstructive sleep apnea. 8. Chronic bronchitis. 9. Pancytopenia secondary to liver cirrhosis. 10. Chronic bilateral lower extremity lymphedema. 11. Depression. 12. Lipodermatosclerosis. 13. Restless leg syndrome. 14. Chronic back pain secondary to lumbar disease. FAMILY HISTORY: Father had diabetes mellitus. SOCIAL HISTORY: This man is a and currently lives with his adult daughter. The patient is retired. No personal tobacco use, but he was exposed to second-hand tobacco smoke from his for many years. Drinks alcohol rarely. SURGICAL HISTORY: Left knee surgery as a teenager. ALLERGIES: NO KNOWN DRUG ALLERGIES. CURRENT MEDICATIONS 1. Levemir 60 units subcutaneous twice a day. 2. Lactulose 20 grams b.i.d. 3. Carisoprodol 350 mg q.h.s. 4. Lexapro 20 mg q.h.s. 5. Pramipexole 4 mg every night. 6. Tizanidine 4 mg every night. 7. Xifaxin 550 mg twice a day. 8. Lisinopril 10 mg daily. 9. Ipratropium bromide/albuterol nebulizer treatments every 6 hours as needed. 10. Furosemide 80 mg daily. PHYSICAL EXAMINATION GENERAL: He is awake, somewhat alert, gets confused easily. His adult daughter is at bedside. VITAL SIGNS: Height is 5 feet 7 inches and weight is 435 pounds. BMI 68. Blood pressure 163/68, pulse 72, respiratory rate 22, oxygen saturation 100% on 2 liters, and temperature 97.0. INTEGUMENT: Skin is warm and dry. No pallor or diaphoresis. HEENT: Moist mucous membranes. Patient has periorbital edema. NECK: Supple. Difficult to assess for jugular venous distention because of his body habitus. CARDIOVASCULAR: Distant heart sounds. Regular rate and rhythm. LUNGS: The patient has rhonchi and crackles bilaterally. ABDOMEN: Obese. He has a large pendulous abdominal pannus. : Patient's penis and scrotal area are very edematous, difficult to access the urethra. EXTREMITIES: A 3+ bilateral lower leg edema with lipodermatosclerosis. NEUROLOGY: Intact. No focal deficit appreciated. IMPRESSION 1. Zbnnv-te-wkrucah diastolic congestive heart failure. 2. Urinary tract infection. 3. Acute renal failure (possible hepatorenal). 4. Decompensated liver cirrhosis secondary to fatty liver disease. 5. Mild hepatic encephalopathy secondary to decompensated liver cirrhosis. 6. Obstructive sleep apnea. 7. Extreme obesity. Body mass index of 68. PLAN 1. The patient is do not resuscitate. 2. Intravenous furosemide. 3. Consult urology for Macias catheter placement. 4. Supplemental oxygen. 5. Nebulizer bronchodilators. 6. I did speak at length with adult daughter about her father's end of life issues. 7. Informed the daughter that he may benefit from prior treatments from home hospice care. I spent an hour in the care of this patient. Job#: [id number] FAY CUMMINS
--- NOTE | 2018-04-23 19:09 | NUR ---
walking round with JESSICA Strong
--- NOTE | 2018-04-23 19:15 | NUR ---
Sandy lundberg in [facility] - 04/23/18 at 1918 by JAILYN WALKING ROUNDS WITH JESSICA FREY DAY SHIFT NURSE.
--- NOTE | 2018-04-23 19:18 | NUR ---
WALKING ROUNDS WITH JESSICA EVANS DAY SHIFT NURSE.
--- NOTE | 2018-04-23 19:35 | NUR ---
HANDOFF REPORT REC'D FROM ER NURSE JESSICA MATHIS AT THIS TIME.
[2018-04-23 20:00] VITALS: BP 135/67
--- NOTE | 2018-04-23 20:10 | NUR ---
PT REC'D TO ROOM 105 AT THIS TIME. T 97.4; HR 79; BP 107/54; RR LABORED WITH SOB AT 24; O2 @ 99% ON 3L NC;
[2018-04-23 20:22] VITALS: BP 107/54
[2018-04-23] MEDS: ESCITALOPRAM OXALATE 10 MG TAB PO SCH ×2 (21:00)
[2018-04-23] MEDS: PRAMIPEXOLE DIHYDROCHLORIDE 0.25 MG TAB PO SCH ×2 (21:00)
[2018-04-23] MEDS: TIZANIDINE HCL 4 MG TAB PO SCH ×2 (21:00)
[2018-04-23] MEDS ORDERED: PRAMIPEXOLE DIHYDROCHLORIDE 1 MG TAB PO SCH (21:00)
[2018-04-23] MEDS ORDERED: NON-FORMULARY MEDICATION (Escitalopram Oxalate (Lexapro) 20 MG) PO SCH (21:00)
[2018-04-23] MEDS: FUROSEMIDE INJ 10 MG/ML 4 ML VIAL IV SCH (22:00)
[2018-04-24] VITALS (9 sets, daily range): BP systolic 84–128; BP diastolic 50–59
--- NOTE | 2018-04-24 00:50 | NUR ---
Unable to draw labs d/t poor venous access. Addendum: 04/24/18 at 0435 by Monika Fraser RN made aware.
[2018-04-24] MEDS: ALBUTEROL/IPRATROPIUM 3 ML NEB NEB SCH ×4 (01:14→19:28)
--- NOTE | 2018-04-24 04:08 | NUR ---
Social service consultation because patient states he is homeless. Per daughter, the plan is for the patient to go "home" on hospice.
[2018-04-24] MEDS: CEFEPIME 1GM/NS 0.9% 50 ML 50 ML IV SCH ×2 (05:12→16:48)
--- NOTE | 2018-04-24 05:34 | NUR ---
Bariatric bed ordered per physician order from [facility]; Confirmation#[id number], states it will be on truck that leaves 8am
[2018-04-24 06:11] LABS: BASOPHILS % 0.2 % (0.0-1.0); EOSINOPHILS # (AUTO) 0.5 (0.0-0.4); HEMOGLOBIN 9.6 g/dL (14.0-18.0); LYMPHOCYTES # (AUTO) 0.7 (1.0-3.2); LYMPHOCYTES % 7.7 % (18.0-39.1); MEAN CORPUSCULAR HEMOGLOBIN 34.9 pg (28-32); MEAN CORPUSCULAR HGB CONC 33.1 g/dL (31-35); MEAN CORPUSCULAR VOLUME 105.5 fL (81-99); MONOCYTES # (AUTO) 0.8 (0.2-0.8); MONOCYTES % 8.3 % (4.4-11.3); NEUTROPHILS # (AUTO) 7.5 (2.1-6.9); NEUTROPHILS % 77.9 % (38.7-80.0); RED BLOOD COUNT 2.75 x10e6/uL (4.3-5.7); RED CELL DISTRIBUTION WIDTH 16.4 % (11.7-14.4)
[2018-04-24 06:26] LABS: PLATELET COUNT 37 x10e3/uL (140-360)
[2018-04-24 06:40] LABS: CREATINE KINASE MB 5.3 ng/mL (0-5.0)
[2018-04-24 06:53] LABS: ALBUMIN 1.7 g/dL (3.5-5.0); ALBUMIN/GLOBULIN RATIO 0.6 (0.8-2.0); ANION GAP 8.9 mmol/L (8-16); CALCIUM 9.4 mg/dL (8.4-10.2); CHOL/HDL RATIO 6.5 (3.9-4.7); CREATININE, SERUM 1.61 mg/dL (0.72-1.25); POTASSIUM 3.9 mmol/L (3.5-5.1)
--- NOTE | 2018-04-24 07:52 | Diagnostic Imaging Report ---
EXAMINATION: CHEST SINGLE (PORTABLE) COMPARISON: Chest x-ray 04/23/2018 INDICATION: CHF DISCUSSION: Frontal view of the chest obtained at 0605 hours. Study is compromised due to patient's generous body habitus and portable technique HEART AND MEDIASTINUM: Stable cardiomegaly LINES: None. LUNGS: Posterior subsegmental atelectasis. Left diaphragm is poorly visualized. Vascular markings are prominent PLEURA: No large effusions. No pneumothorax. BONES AND SOFT TISSUES: No focal osseous lesion. The soft tissues are normal. IMPRESSION: 1. Cardiomegaly and vascular congestion. 2. Posterior subsegmental atelectasis. Left basilar infiltrate and small pleural effusions cannot be excluded. Signed by: Dr. Talia Stoll MD on 04/24/2018 7:49 AM
[2018-04-24] MEDS ORDERED: ASPIRIN 81 MG ENTERIC COATED PO SCH (09:00)
[2018-04-24] MEDS: FUROSEMIDE INJ 10 MG/ML 4 ML VIAL IV SCH ×2 (09:28→21:30)
[2018-04-24] MEDS ORDERED: LACTULOSE SYRUP 20 GM/30 ML UDC PO PRN (13:00)
--- NOTE | 2018-04-24 13:34 | NUR ---
Nutrition Screen Note RD Recommendation for Physician: Continue diet as ordered Plan of Care: RD following, monitoring for adequacy and tolerance Nutrition reason for involvement: Nutrition Risk Trigger Primary Diagnose(s): COPD, Heart failure, bronchitis Ht:67 in Wt:435lbs BMI:68.1 kg/m2 IBW:148lbs RD Assessment:(04/24/2018) Initial encounter with patient. Pt is eating well and denies any N, V, D nor has any difficulty chewing or swallowing. No significant wt changes besides fluid status changes. Current Diet: Cardiac Malnutrition Evaluation (04/24/2018) The patient does not meet criteria for a specified degree of malnutrition at this time. Will re-evaluate at follow-up as appropriate. Diet Education Needs Assessment: Diet education not indicated. Diet Adequacy: Meeting calorie needs, Meeting protein needs, Meeting fluid needs Tolerance: Tolerating PO Nutrition Care Level:Efrain Robles RD, LD, [facility]
[2018-04-24 13:44] LABS: ANISOCYTOSIS SLIGHT; PLATELET ESTIMATE MODERATELY DECREASED; PLATELET MORPHOLOGY COMMENT NORMAL
[2018-04-24 14:38] LABS: CREATINE KINASE MB 6.3 ng/mL (0-5.0)
[2018-04-24] MEDS: LACTULOSE SYRUP 20 GM/30 ML UDC PO SCH ×2 (15:04→21:30)
--- NOTE | 2018-04-24 16:30 | NUR ---
Notified Dr. Gamez that patient is urine output is only 300 for the entire shift despite pt being on IV lasix. Received new orders to start aldactone 50mg po daily. Also received orders to start pt on low dose sliding scale with coverage using Humalog insulin.
[2018-04-24] MEDS ORDERED: SODIUM CHLORIDE 0.9% 250ML 250 ML ONE (16:48)
[2018-04-24] MEDS ORDERED: DEXTROSE 50% SYRINGE 50 ML IV PRN (17:15)
[2018-04-24] MEDS: SPIRONOLACTONE 25 MG TAB PO SCH (17:31)
--- NOTE | 2018-04-24 19:01 | NUR ---
WALKING ROUNDS PERFORMED, RECEIVED PT LAYING FOWLERS IN BED, RESTING, 16 RR/MIN, RR EVEN AND NON-LABORED, O2 BY NC AT 2L. NO S/SX OF DISTRESS NOTED. LEFT PT LAYING FOWLERS IN BED, BED IN LOW LOCKED POSITION, SIDE RAILS UPX2, CALL LIGHT AND PHONE WITHIN REACH.
--- NOTE | 2018-04-24 20:50 | NUR ---
SPECIALTY BED DELIVERED, X4 PERSON ASSIST PROVIDED TO TRANSFER PT TO NEW BED.
[2018-04-24] MEDS: ESCITALOPRAM OXALATE 10 MG TAB PO SCH (21:30)
[2018-04-24] MEDS: PRAMIPEXOLE DIHYDROCHLORIDE 0.25 MG TAB PO SCH (21:30)
[2018-04-24] MEDS: INSULIN LISPRO 100 UNIT/1 ML 3ML VIAL SQ SCH (21:30)
[2018-04-24] MEDS: TIZANIDINE HCL 4 MG TAB PO SCH (21:30)
--- NOTE | 2018-04-24 22:45 | NUR ---
PT REPORTS NEED TO HAVE BM. PT PLACED ON BEDPAN. AFTER 15 MINUTES PT REPORTS UNABLE TO HAVE BM ONLY PASSED GAS. PT REMOVED FROM BEDPAN. LEFT PT LAYING SEMI FOWLERS IN BED, BED IN LOW LOCKED POSITION, SIDE RAILS UPX3, CALL LIGHT AND PHONE WITHIN REACH. FAMILY AT BEDSIDE.
--- NOTE | 2018-04-24 23:10 | NUR ---
RESPIRATORY NOTIFIED THAT PT READY FOR CPAP.
--- NOTE | 2018-04-24 23:30 | NUR ---
CALLED TO PT ROOM BECAUSE PT REPORTS THE MASK STRAP IS TOO SMALL. NOTIFIED RESPIRATORY.
[2018-04-25] VITALS (8 sets, daily range): BP systolic 91–118; BP diastolic 42–53
--- NOTE | 2018-04-25 00:30 | NUR ---
CALLED TO PT ROOM AND STATES THE MASK FOR THE BIPAP IS JUST NOT WORKING. NOTIFIED RESPIRATORY. REMOVED BIPAP MASK, APPLIED 3L NC.
[2018-04-25] MEDS: ALBUTEROL/IPRATROPIUM 3 ML NEB NEB SCH ×4 (00:50→19:40)
[2018-04-25] MEDS: CEFEPIME 1GM/NS 0.9% 50 ML 50 ML IV SCH ×2 (05:24→17:19)
--- NOTE | 2018-04-25 05:48 | NUR ---
BP NOTED TO BE 91/44, MANUAL BP NOTED TO BE 88/42. PAGE PLACED FOR MD YOST. Lacie ROSADO COVERING. NO NEW ORDERS AT THIS TIME
--- NOTE | 2018-04-25 07:39 | NUR ---
Pt received in bed with eyes open. Pt is aox3 and able to verbalize needs. Denies any pain at this time. Breaths are even and unlabored on room air. Macias catheter in place and draining dark jason colored urine.
[2018-04-25] MEDS: LACTULOSE SYRUP 20 GM/30 ML UDC PO SCH ×3 (08:29→20:59)
[2018-04-25] MEDS: INSULIN LISPRO 100 UNIT/1 ML 3ML VIAL SQ SCH ×4 (09:03→20:59)
[2018-04-25] MEDS: SPIRONOLACTONE 25 MG TAB PO SCH (10:19)
[2018-04-25] MEDS: FUROSEMIDE INJ 10 MG/ML 4 ML VIAL IV SCH ×2 (10:19→20:59)
--- NOTE | 2018-04-25 11:00 | NUR ---
Pt encouraged to use Bipap but is refusing b/c he states it is uncomfortable. Pt was repositioned but 30min later he states he wants to be on his back.
[2018-04-25] MEDS: MORPHINE SULFATE INJ 4 MG/ML INJ IV PRN ×2 (15:50→20:59)
--- NOTE | 2018-04-25 16:22 | Diagnostic Imaging Report ---
Ultrasound ascites search HISTORY: Ascites TECHNIQUE: Sonographic interrogation of all 4 ports of the abdomen was performed. COMPARISON: No relevant priors FINDINGS: No evidence of fluid in any quadrant. Visualized portions of the bowel are unremarkable. IMPRESSION: No evidence of ascites. Signed by: Dr. Talia Stoll MD on 04/25/2018 4:19 PM
--- NOTE | 2018-04-25 18:00 | NUR ---
Paged Dr. Gamez to report abdominal ultrasound reports and waiting for call back.
--- NOTE | 2018-04-25 18:50 | NUR ---
WALKING ROUNDS PERFORMED, RECEIVED PT LAYING SEMI FOWLERS IN BED, AAOX3, RR EVEN AND NON-LABORED, O2 BY NC AT 3L. NO S/SX OF DISTRESS NOTED. LEFT PT LAYING SEMI FOWLERS IN BED, BED IN LOW LOCKED POSITION, SIDE RAILS UPX2, CALL LIGHT AND PHONE WITHIN REACH. FAMILY AT BEDSIDE.
--- NOTE | 2018-04-25 19:39 | NUR ---
DISCUSSED ABDOMINAL US RESULTS WITH MD Lacie ROSADO. NO NEW ORDERS RECEIVED.
--- NOTE | 2018-04-25 20:41 | NUR ---
APPLIED PT BIPAP AT THIS TIME. RESPIRATORY NOTIFIED.
--- NOTE | 2018-04-25 20:53 | Consultation ---
DATE OF CONSULTATION: April 23, 2018 CHIEF COMPLAINT/REASON FOR CONSULTATION: Urinary retention, obesity. HISTORY OF PRESENT ILLNESS: Mr. Lamas is a 62-year-old male patient admitted to the hospital with CHF flare, emergency room as well as placed Macias catheter secondary to he patient's super morbid obesity, BMI over 68. PAST MEDICAL HISTORY: As above. Diastolic congestive heart failure, hepatorenal failure, cirrhosis, urinary retention, super morbid obesity, BMI 68, obstructive sleep apnea, hepatic encephalopathy, diabetes mellitus. MEDICATIONS: Please see MAR. ALLERGIES: NKDA. SOCIAL HISTORY: No smoking. No drinking. FAMILY HISTORY: Denied urologic stones or malignancies. REVIEW OF SYSTEMS: Noncontributory other than problems mentioned above for 12 organ systems. PHYSICAL EXAMINATION GENERAL: Elderly male, in no acute distress, morbidly obese. VITAL SIGNS: Currently, he is afebrile with stable vital signs. HEENT: Sclerae anicteric. NECK: Supple. BACK: Without costovertebral angle tenderness bilaterally. ABDOMEN: Morbidly obese, nontender. : Unable to see the penis or scrotum, however, layers of pannus. EXTREMITIES: [place] edema. Venous stasis changes. NEUROLOGIC: Moves all 4 extremities. PSYCH: Alert. Mood appropriate. SKIN: Intact. Normal color. PERTINENT LABORATORY DATA: Hemoglobin 11.8, platelet count 337,000, white cell count 13,470. Sodium 132, chloride 95, bicarb 30, BUN 65, creatinine 1.6, glucose 166. ALT of 111, AST of 95, calcium 10.3. Urinalysis 2 to 5 white's and 10 to 20 red's. IMPRESSION 1. Urinary retention. 2. Super morbid obesity. 3. Thrombocytopenia. 4. Hypercalcemia. 5. Urinary tract infections. 6. Microscopic hematuria. 7. Urinary retention. PLAN: With great deal of help, I was able to place a Macias catheter draining greater than 400 mL. Urinary tract infection, on broad-spectrum antibiotics. Renal and liver failure. Will defer to primary. For the morbid obesity, patient needs weight loss. Consider bariatric consult. Microscopic hematuria, elective cystoscopy for thrombocytopenia likely secondary to hepatic tissues. We will defer to primary service. Thank you for allowing me to participate in the care of your patient. Will be happy to follow along with you. Job#: [id number] JESSICA
[2018-04-25] MEDS: TIZANIDINE HCL 4 MG TAB PO SCH (20:59)
[2018-04-25] MEDS: PRAMIPEXOLE DIHYDROCHLORIDE 0.25 MG TAB PO SCH (20:59)
[2018-04-25] MEDS: ESCITALOPRAM OXALATE 10 MG TAB PO SCH (20:59)
--- NOTE | 2018-04-25 22:15 | NUR ---
ALERTED TO PT ROOM BY BIPAP BEEPING. PT HAS REMOVED BIPAP AND STATES "I HAVE TAKEN IT FOR LONG I CAN." APPLIED 3L NC. RESPIRATORY NOTIFIED. NOTIFIED PT RISKS FOR NOT WEARING BIPAP WHILE ASLEEP WITH FIDE. PT VERBALIZED HE UNDERSTANDS.
[2018-04-26] VITALS (8 sets, daily range): BP systolic 90–120; BP diastolic 44–54
[2018-04-26] MEDS: ALBUTEROL/IPRATROPIUM 3 ML NEB NEB SCH ×4 (00:05→20:30)
[2018-04-26] MEDS: CEFEPIME 1GM/NS 0.9% 50 ML 50 ML IV SCH ×2 (05:10→18:00)
[2018-04-26 06:12] LABS: BASOPHILS % 0.3 % (0.0-1.0); EOSINOPHILS # (AUTO) 0.5 (0.0-0.4); EOSINOPHILS % 6.5 % (0.0-6.0); HEMATOCRIT 28.8 % (38.2-49.6); HEMOGLOBIN 9.6 g/dL (14.0-18.0); LYMPHOCYTES # (AUTO) 0.7 (1.0-3.2); LYMPHOCYTES % 9.5 % (18.0-39.1); MEAN CORPUSCULAR HEMOGLOBIN 35.6 pg (28-32); MEAN CORPUSCULAR HGB CONC 33.3 g/dL (31-35); MEAN CORPUSCULAR VOLUME 106.7 fL (81-99); MONOCYTES # (AUTO) 0.7 (0.2-0.8); MONOCYTES % 9.1 % (4.4-11.3); NEUTROPHILS # (AUTO) 5.5 (2.1-6.9); NEUTROPHILS % 73.9 % (38.7-80.0); RED CELL DISTRIBUTION WIDTH 16.1 % (11.7-14.4)
[2018-04-26 06:19] LABS: PLATELET COUNT 29 x10e3/uL (140-360)
[2018-04-26 06:30] LABS: INR 1.36; PROTHROMBIN TIME 17.9 seconds (11.9-14.5)
[2018-04-26 06:39] LABS: BAND NEUTROPHILS % (MANUAL) 8 %; EOSINOPHILS % (MANUAL) 4 % (0-7); LYMPHOCYTES % (MANUAL) 15 % (19-48); MONOCYTES % (MANUAL) 9 % (3.4-9.0); NEUTROPHILS % (MANUAL) 64 % (40-74)
[2018-04-26 06:40] LABS: ANISOCYTOSIS F; POIKILOCYTOSIS S; RBC MORPHOLOGY COMMENT ABNORMAL
[2018-04-26 06:41] LABS: PLATELET ESTIMATE MARKEDLY DECREASED; PLATELET MORPHOLOGY COMMENT NORMAL
[2018-04-26 06:42] LABS: ALBUMIN 1.7 g/dL (3.5-5.0); ALBUMIN/GLOBULIN RATIO 0.6 (0.8-2.0); CALCIUM 9.3 mg/dL (8.4-10.2); CREATININE, SERUM 2.29 mg/dL (0.72-1.25)
--- NOTE | 2018-04-26 07:00 | NUR ---
SHIFT REPORT RECEIVED FROM NIGHT RN. PT DENIES NEEDS AT THIS TIME.
--- NOTE | 2018-04-26 07:04 | Diagnostic Imaging Report ---
EXAMINATION: CHEST SINGLE (PORTABLE) COMPARISON: Chest x-ray 04/24/2018 INDICATION: CHF DISCUSSION: HEART AND MEDIASTINUM: Stable cardiomegaly LINES: None. LUNGS: Bibasilar subsegmental atelectasis. Vascular markings are prominent PLEURA: No large effusions. No pneumothorax. BONES AND SOFT TISSUES: No focal osseous lesion. The soft tissues are normal. IMPRESSION: 1. Cardiomegaly and vascular congestion. 2. Bibasilar subsegmental atelectasis versus infiltrate. Signed by: DR. David Howell MD on 04/26/2018 7:01 AM
[2018-04-26] MEDS: FUROSEMIDE INJ 10 MG/ML 4 ML VIAL IV SCH ×2 (08:19→21:15)
[2018-04-26] MEDS: SPIRONOLACTONE 25 MG TAB PO SCH (08:19)
[2018-04-26] MEDS: LACTULOSE SYRUP 20 GM/30 ML UDC PO SCH ×3 (08:19→21:30)
[2018-04-26] MEDS: INSULIN LISPRO 100 UNIT/1 ML 3ML VIAL SQ SCH ×4 (08:20→21:10)
--- NOTE | 2018-04-26 10:43 | NUR ---
CM SPOKE TO PATIENT AT BEDSIDE REGARDING [facility]-WAY ACUTE CARE PLACEMENT. PATIENT GIVEN INFORMATION ON SERVICES AND CHOICES. PATIENT VERBALLY AGREED TO TRANSFER TO [facility]. PATIENT SIGNED CHOICE LETTER. CHOICE LETTER PLACED IN CHART. [facility] LIAISON NOTIFIED AND PICKED UP CLINICAL. PENDING INSURANCE APPROVAL. PER MD ORDER TRANSFER WHEN ACCEPTED. MOT INITIATED AND PLACED ON CHART. BEDSIDE RNMART NOTIFIED. [facility] Address: [address], [place] [address]
--- NOTE | 2018-04-26 13:13 | NUR ---
PT HAS EXCELLENCE [facility] [phone] FAX NUMBER [phone] AT HOME PRIOR TO ADMISSION
--- NOTE | 2018-04-26 16:09 | NUR ---
WOUND CARE CONSULTATION: THIS IS A 62 YEAR OLD MALE PATIENT ADMITTED TO [facility] FOR CHF, LYMPHEDEMA TO BILATERAL LOWER EXTREMITIES. PATIENT HAS A HISTORY OF SLEEP APNEA, HEART FAILURE, HEPATIC ENCEPHALOPATHY, AND PNA. HEAD TO TOE SKIN ASSESSMENT PERFORMED. 4+ PITTING EDEMA AND DISCOLORATION NOTED TO BILATERAL LOWER EXTREMITIES; SKIN INTACT; UNABLE TO PALPATE PULSES BILATERALLY DUE TO AMOUNT OF EDEMA. PATIENT HAS BRUISING NOTED TO THE RIGHT WRIST, RIGHT AXILLA, AND LEFT FOREARM SUSTAINED FROM A FALL AT HOME. PATIENT IS OBESE AND BARIATRIC ALTERNATING PRESSURE RELIEF MATTRESS IS IN PLACE. PATIENT HAS HYDROCELE NOTED WITH ASSESSMENT; SKIN INTACT. LABS: WBC7.40 ALB1.7 RECOMMENDATION: -CONTINUE ALTERNATING PRESSURE RELIEF BARIATRIC MATTRESS. -APPLY BILATERAL HEEL PROTECTORS WITH PILLOW SUSPENSION. -TURN EVERY 2 HOURS AND PRN. -NURSING TO PROVIDE ABDULKADIR CARE WITH SOAP AND WATER DAILY AND PRN. THANK YOU FOR THIS WOUND CARE CONSULT. Addendum: 04/26/18 at 1618 by Ligia Saeed RN Amended: Links added.
--- NOTE | 2018-04-26 19:40 | NUR ---
REPORT TAKEN FROM AM RN.WALKING ROUNDS DONE.LYEING QUIETLY IN THE BED.ASSESSMENT DONE.NO RESP.DISTRESS.NC O2 3L IS IN PLACE.FAMILY MEMBER AT BED SIDE.CALL LIGHT WITHIN REACH.INSTRUCTED TO CALL FOR ASSISTANCE NEEDED.
--- NOTE | 2018-04-26 20:00 | NUR ---
ON ASSESSMENT BRUISES NOTED ON HIS BODY.
[2018-04-26] MEDS: PRAMIPEXOLE DIHYDROCHLORIDE 0.25 MG TAB PO SCH (21:10)
[2018-04-26] MEDS: MORPHINE SULFATE INJ 4 MG/ML INJ IV PRN (21:15)
[2018-04-26] MEDS: ESCITALOPRAM OXALATE 10 MG TAB PO SCH (21:30)
[2018-04-26] MEDS: TIZANIDINE HCL 4 MG TAB PO SCH (21:30)
--- NOTE | 2018-04-26 21:30 | NUR ---
HAD LARGE BOWEL MOVEMENT.PERICARE GIVEN WITH SOAP AND WATER.TOLERATED WELL.
--- NOTE | 2018-04-26 23:00 | NUR ---
PT IS ON BIPAP.BUT PT STATED THAT NOT COMFORTABLE WITH BIPAP.SWITCHED TO O2 NASAL CANNULA 3L.HAD ANOTHER LARGE BOWELMOVEMENT.LOOSE STOOL NOTED.
[2018-04-27] VITALS: BP 90/50
[2018-04-27] MEDS: ALBUTEROL/IPRATROPIUM 3 ML NEB NEB SCH ×2 (00:45→07:00)
[2018-04-27 04:00] VITALS: BP 100/44
[2018-04-27] MEDS ORDERED: LACTULOSE SYRUP 20 GM/30 ML UDC PO PRN (05:15)
[2018-04-27] MEDS: CEFEPIME 1GM/NS 0.9% 50 ML 50 ML IV SCH (05:42)
[2018-04-27 06:25] LABS: BASOPHILS % 0.4 % (0.0-1.0); EOSINOPHILS # (AUTO) 0.4 (0.0-0.4); EOSINOPHILS % 4.8 % (0.0-6.0); HEMATOCRIT 30.9 % (38.2-49.6); HEMOGLOBIN 10.4 g/dL (14.0-18.0); LYMPHOCYTES # (AUTO) 0.7 (1.0-3.2); LYMPHOCYTES % 8.4 % (18.0-39.1); MEAN CORPUSCULAR HEMOGLOBIN 35.9 pg (28-32); MEAN CORPUSCULAR HGB CONC 33.7 g/dL (31-35); MEAN CORPUSCULAR VOLUME 106.6 fL (81-99); MONOCYTES # (AUTO) 0.7 (0.2-0.8); MONOCYTES % 8.5 % (4.4-11.3); NEUTROPHILS % 77.3 % (38.7-80.0)
[2018-04-27 06:37] LABS: PLATELET COUNT 37 x10e3/uL (140-360)
[2018-04-27 06:41] LABS: ALBUMIN 1.8 g/dL (3.5-5.0); ALBUMIN/GLOBULIN RATIO 0.6 (0.8-2.0); ANION GAP 9.7 mmol/L (8-16); CREATININE, SERUM 2.21 mg/dL (0.72-1.25); POTASSIUM 4.7 mmol/L (3.5-5.1)
--- NOTE | 2018-04-27 06:59 | NUR ---
REPORT GIVEN TO THE ONCOMING RN.WALKING ROUNDS DONE.STABLE CONDITION.
--- NOTE | 2018-04-27 07:01 | NUR ---
ONCOMING RN IS AWARE OF THE LAB CRITICAL VALUE PLATELET 37 L.
[2018-04-27] MEDS: INSULIN LISPRO 100 UNIT/1 ML 3ML VIAL SQ SCH ×2 (07:30→12:35)
--- NOTE | 2018-04-27 07:57 | NUR ---
Rounds by Dr. Asencio and reviewed medications and orders in place to discharge patient, waiting for bed availability to [facility].
[2018-04-27 08:40] VITALS: BP 89/45
--- NOTE | 2018-04-27 09:03 | Discharge Summary ---
ADMIT DIAGNOSES: 1. Mjphm-ch-trchwcf diastolic congestive heart failure. 2. Urinary tract infection. 3. Acute renal failure (possible hepatorenal). 4. Decompensated liver cirrhosis secondary to fatty liver disease. 5. Mild hepatic encephalopathy secondary to decompensated liver cirrhosis. 6. Obstructive sleep apnea. 7. Extreme obesity, calculated body mass index 68. DISCHARGE DIAGNOSES: 1. Ybnyr-xs-lpowcwc diastolic congestive heart failure, worsening. 2. Qrouo-ok-vqbxsjk renal failure, possible hepatorenal, worsening. 3. Urinary tract infection. 4. Bilateral pneumonia, likely gram-negative angela. 5. Decompensated liver cirrhosis secondary to fatty liver disease. 6. Hepatic encephalopathy secondary to decompensated liver cirrhosis. 7. Obstructive sleep apnea. 8. Extreme obesity, calculated body mass index 68. HOSPITAL COURSE: This is a 62-year-old white man who was admitted to [facility] with diagnosis of rmqyy-un-zthnoox diastolic congestive heart failure as well as wqhod-jo-nzwkajw renal failure, likely secondary to hepatorenal syndrome. During this hospitalization, he was also diagnosed with urinary tract infection as well as bilateral pneumonia that is most likely gram-negative angela in etiology. During this hospitalization, the adult daughter confirmed the patient is a do not resuscitate code status. Patient was very confused during his hospitalization secondary to hepatic encephalopathy secondary to his decompensated liver cirrhosis from his fatty liver disease. His hospitalization was unremarkable. Unfortunately, he did not improve clinically. End-of-life issues were discussed with the daughter, particularly hospice care. The daughter elected to pursue treatment in regards to his pneumonia and urinary tract infection. Thus, the patient was transferred to a local long-term acute care facility namely [facility] where he could receive treatment for his pneumonia as well as urinary tract infection. The patient's overall prognosis is very poor. DISCHARGE MEDICATIONS: 1. Cefepime 1 g intravenously every 12 hours. 2. Ipratropium/albuterol nebulized treatments every 6 hours. 3. Lexapro 20 mg nightly. 4. Tizanidine 4 mg nightly. 5. Morphine sulfate 2 mg intravenously every 4 hours p.r.n. pain. 6. Furosemide 80 mg intravenously every 12 hours. 7. Pramipexole 0.25 mg nightly. 8. Lactulose 20 g p.o. b.i.d. 9. Ondansetron 4 mg intravenously every 4 hours p.r.n. nausea, vomiting. 10. Carisoprodol 350 mg nightly. FOLLOWUP INSTRUCTIONS: As previously stated, patient was transferred to a local long-term acute care facility namely [facility] where he will be treated for his pneumonia and urinary tract infection. The patient is a do not resuscitate code status. End-of-life issues were discussed with the adult daughter, particularly hospice care. The daughter is receptive to hospice care, but she would like her father's infections to be treated particularly his urinary tract infection and pneumonia. This gentleman unfortunately has extremely poor prognosis. ANIVAL YOST MD Job#: [id number]
[2018-04-27] MEDS: FUROSEMIDE INJ 10 MG/ML 4 ML VIAL IV SCH (09:24)
[2018-04-27 10:53] VITALS: BP 89/45
--- NOTE | 2018-04-27 10:56 | NUR ---
Call to Dr. Oconnell's office to confirm transfer of patient to [facility] at this time
[2018-04-27 12:48] VITALS: BP 124/58
--- NOTE | 2018-04-27 13:10 | NUR ---
Report given to Venkat WEIR at [facility], Patient picked up by ambulance and IV line in place for IV abx, chart copied and given to weatherization installer.
== END 2018-04-27 13:36 | DRG 291 ==
LOC: ER 11:23 → ERHOLD 16:54 → MED/SURG 20:23
PROVIDERS: ADMIT Internal Medicine; ATTEND Internal Medicine
PROC: 0T9B70Z Drainage of Bladder with Drainage Device, Via Natural or Artificial Opening (ICD-10-PCS; principal; 2018-04-23)
DX: I13.0 Hypertensive heart and chronic kidney disease with heart failure and stage 1 through stage 4 chronic kidney disease, or unspecified chronic kidney disease (principal); I50.33 Acute on chronic diastolic (congestive) heart failure; K76.7 Hepatorenal syndrome; J15.6 Pneumonia due to other Gram-negative bacteria; N17.9 Acute kidney failure, unspecified; Z68.44 Body mass index [BMI] 60.0-69.9, adult; N39.0 Urinary tract infection, site not specified; N18.9 Chronic kidney disease, unspecified; E11.22 Type 2 diabetes mellitus with diabetic chronic kidney disease; Z79.4 Long term (current) use of insulin; E66.01 Morbid (severe) obesity due to excess calories; R33.9 Retention of urine, unspecified; D69.6 Thrombocytopenia, unspecified; K74.60 Unspecified cirrhosis of liver; K76.0 Fatty (change of) liver, not elsewhere classified; I89.0 Lymphedema, not elsewhere classified; Z66 Do not resuscitate; K72.90 Hepatic failure, unspecified without coma; F32.9 Major depressive disorder, single episode, unspecified; I83.10 Varicose veins of unspecified lower extremity with inflammation; G25.81 Restless legs syndrome; M53.87 Other specified dorsopathies, lumbosacral region; G89.29 Other chronic pain; G47.33 Obstructive sleep apnea (adult) (pediatric); S01.01XA Laceration without foreign body of scalp, initial encounter; W19.XXXA Unspecified fall, initial encounter
CPT/HCPCS: 36415; 36600; 51700; 70450; 71045; 76705; 80053; 80061; 81001; 82140; 82550; 82553; 82805; 82948; 83735; 83880; 84100; 84443; 84484; 85025; 85610; 93005; 93306; 94640; 94660; 96372; 99285; J0692; J1940; J2270; J2405; J7050